=== PATIENT | male | born 1975 | race Caucasian/White ===

== ENCOUNTER 2018-02-20 08:20 | Emergency (ER) | payer BC ==
--- NOTE | 2018-02-20 08:24 | ER Document Report ---
ED General - General Stated Complaint: BACK PAIN Time Seen by Provider: 02/20/18 08:23 Mode of Arrival: Medic Information source: Patient, Relative TRAVEL OUTSIDE OF THE [place] IN LAST 30 DAYS: No - HPI Notes: 42-year-old male with a medical history of diabetes presents to the ED with complaints of having onset right leg weakness with lower back pain is become progressively worse starting today, patient states that he has had lower back pain for the last 5 days which was dull however has become severe pain today. Patient denies any trauma to back. Patient denies a history of chronic back pain. Patient has not tried any [id number] medication for pain. Patient does have a calcaneal wound to his left foot from when he tore a ligament in his ankle back in September, was placed in a orthopedic boot, he then required a diabetic ulcer in which she became infected with Pseudomonas and staph, patient is going to wound care and debridement, is currently on Cipro and Keflex. Denies fevers, chills, chest pain,palpitations, shortness of breath, dyspnea, nausea, vomiting, diarrhea, abdominal pain, hematuria,blurred vision, double vision, loss of vision, speech changes, LH, dizziness, syncope, headaches, wheezing, ST, URI, neck pain, weakness, bowel or bladder dysfunction, saddle anesthesia, rash and IV drug use. - Related Data Allergies/Adverse Reactions: No Known Allergies Allergy (Unverified 02/20/18 08:31) Past Medical History - General Information source: Patient, Relative - Social History Smoking Status: Unknown if Ever Smoked Family History: Reviewed & Not Pertinent Review of Systems - Review of Systems Constitutional: No symptoms reported EENT: No symptoms reported Cardiovascular: No symptoms reported Respiratory: No symptoms reported Gastrointestinal: No symptoms reported Genitourinary: No symptoms reported Male Genitourinary: No symptoms reported Musculoskeletal: See HPI Skin: See HPI Hematologic/Lymphatic: No symptoms reported Neurological/Psychological: No symptoms reported Physical Exam - Vital signs Vitals: Temp Pulse BP Pulse Ox 98.3 F 89 132/76 H 100 02/20/18 08:28 02/20/18 08:28 02/20/18 08:28 02/20/18 08:28 - Notes Notes: PHYSICAL EXAMINATION: GENERAL: Well-appearing, well-nourished and in no acute distress. HEAD: Atraumatic, normocephalic. EYES: Pupils equal round and reactive to light, extraocular movements intact, sclera anicteric, conjunctiva are normal. ENT: Nares patent, oropharynx clear without exudates. Moist mucous membranes. NECK: Normal range of motion, supple without lymphadenopathy LUNGS: Breath sounds clear to auscultation bilaterally and equal. No wheezes rales or rhonchi. HEART: Regular rate and rhythm without murmurs ABDOMEN: Soft, nontender, nondistended abdomen. No guarding, no rebound. No masses appreciated : Normal sphincter tone, no hemorrhoids or masses palpable Musculoskeletal: Normal range of motion, no pitting or edema. No cyanosis. Pain with flexion at 10 degrees, unable to perform extension, positive straight leg test. DTR +2 in BLE equally. Strength 5 out of 5 both distally and proximally to bilateral lower extremities. L>R sensory function to lower extremities. Motor function is normal in bilateral lower extremities equally. Distal pulses + 2 BLE equally. Noted paraspinal tenderness near L2 and L3. No spinal tenderness. No CVA tenderness bilaterally. Femoral pulses + 2 bilaterally and equally. No abrasions, scars, lacerations, ecchymosis of any recent trauma. normal gait. NEUROLOGICAL: Cranial nerves grossly intact. Normal speech, normal gait. Normal sensory, motor exams PSYCH: Normal mood, normal affect. SKIN: Warm, Dry, normal turgor, no rashes or lesions noted. 4cm annular diabetic ulcer to left calcaneal area, no erythema or drainage noted. No surrounding erythema Course - Re-evaluation Re-evalutation: 02/20/18 10:08 42-year-old male with a history of diabetes and is also dealing with a diabetic ulcer to his left heel presents for evaluation of sudden onset right lower leg weakness with acute lower back pain via EMS. Afebrile vitals stable and is in moderate distress due to pain. Rectal exam normal, decreased sensation on right lower extremity by comparison to left with soft and sharp sensory evaluation. - Vital Signs Vital signs: Temp Pulse Resp BP Pulse Ox 98.3 F 89 132/76 H 100 02/20/18 08:28 02/20/18 08:28 02/20/18 08:28 02/20/18 08:28 - Laboratory Result Diagrams: 02/20/18 08:46 02/20/18 08:46 Laboratory results interpreted by me: 02/20/18 02/20/18 08:46 08:46 Chloride 109 H Glucose 246 H Lactic Acid 2.3 H Albumin 3.4 L Discharge - Discharge Clinical Impression: Back pain, Bulging discs Condition: Stable Disposition: HOME, SELF-CARE Instructions: Low Back Pain ([facility]), Oral Narcotic Medication ([facility]), Pain Medication Injection ([facility]), Warm Packs ([facility]) Additional Instructions: You have been seen in the Emergency Department (ED) today for back pain. Your workup and exam have not shown any acute abnormalities and you suffering problems with your discs, but there is no treatment that will fix your symptoms at this time. Please take the naproxen that has been prescribed as directed. [place] as directed with food, do not drive, drink or operate heavy machine you should also purchase a local lidocaine cream such as "aspercreme with lidocaine " and use per bottle instructions to the affected area. Apply heat to the area as often as you are able. Continue to keep active and avoid prolonged periods of bed rest. Please follow up with your doctor as soon as possible regarding today's ED visit and your back pain. Return to the ED for worsening back pain, fever, weakness or numbness of either leg, or if you develop either (1) an inability to urinate or have bowel movements, or (2) loss of your ability to control your bathroom functions (if you start having "accidents"), or if you develop other new symptoms that concern you.concern you. Return immediately for any new or worsening symptoms. Follow up with primary care provider, call tomorrow to make followup appointment. Prescriptions: Cyclobenzaprine HCl [Flexeril 10 mg Tablet] 10 mg PO TIDP PRN #9 tab PRN Reason: Naproxen 500 mg PO BID #10 tablet Forms: Return to Work Referrals: JEAN-PAUL METCALF FNP-C [NO LOCAL MD] - Follow up as needed DENI ELLIS MD [COMMUNITY BASED STAFF] - Follow up in 3-5 days
[2018-02-20 09:05] LABS: ABSOLUTE BASOPHILS # (AUTO) 0.1 10^3/uL (0.0-0.2); ABSOLUTE EOSINOPHILS # (AUTO) 0.2 10^3/uL (0.0-0.6); ABSOLUTE LYMPHOCYTES (AUTO) 1.6 10^3/uL (0.5-4.7); ABSOLUTE MONOCYTES (AUTO) 0.5 10^3/uL (0.1-1.4); ABSOLUTE NEUT (AUTO) 5.7 10^3/uL (1.7-8.2); BASOPHILS % (AUTO) 0.9 % (0-2); EOSINOPHILS % (AUTO) 3.1 % (0-6); HEMATOCRIT 43.6 % (37.9-51.0); HEMOGLOBIN 15.5 g/dL (13.5-17.0); LYMPHOCYTES % (AUTO) 19.8 % (13-45); MEAN CORPUSCULAR HEMOGLOBIN 29.7 pg (27.0-33.4); MEAN CORPUSCULAR HGB CONC 35.5 g/dL (32.0-36.0); MEAN CORPUSCULAR VOLUME 84 fl (80-97); MONOCYTES % (AUTO) 5.7 % (3-13); PLATELET COUNT 264 10^3/uL (150-450); RED BLOOD COUNT 5.21 10^6/uL (4.35-5.55); SEGMENTED NEUTROPHILS % (AUTO) 70.5 % (42-78); TOTAL CELLS COUNTED % (AUTO) 100 %
[2018-02-20] MEDS ORDERED: FENTANYL CITRATE INJ/PF 100 MCG/2 ML AMPUL IV ONE (09:27)
[2018-02-20 09:30] LABS: ALANINE AMINOTRANSFERASE 51 U/L (21-72); ALBUMIN 3.4 g/dL (3.5-5.0); ALKALINE PHOSPHATASE 38 U/L (38-126); ANION GAP 9 (5-19); ASPARTATE AMINO TRANSFERASE 31 U/L (17-59); BILIRUBIN,DIRECT 0.2 mg/dL (0.0-0.4); BILIRUBIN,TOTAL 0.7 mg/dL (0.2-1.3); BLOOD UREA NITROGEN 13 mg/dL (7-20); C-REACTIVE PROTEIN 9.1 mg/L (<10.0); CALCIUM 8.7 mg/dL (8.4-10.2); CARBON DIOXIDE 22 mmol/L (22-30); CHLORIDE 109 mmol/L (98-107); GLUCOSE 246 mg/dL (75-110); POTASSIUM 4.4 mmol/L (3.6-5.0); SODIUM 140.4 mmol/L (137-145); TOTAL PROTEIN 6.3 g/dL (6.3-8.2)
--- NOTE | 2018-02-20 11:16 | RADIOLOGY REPORT (SQ) ---
EXAM DESCRIPTION: MRI LUMBAR SPINE COMBO COMPLETED DATE/TIME: 02/20/2018 10:48 am REASON FOR STUDY: new R leg weakness, -walk, on abx of leg wound, DM COMPARISON: None. TECHNIQUE: Sagittal and Axial imaging includes T1, T1 post gadolinium, T2, STIR and gradient echo se quences. Coronal T2/HASTE imaging. CONTRAST TYPE AND DOSE: 17 mL Prohance. RENAL FUNCTION: Creatinine 0.52 GFR is greater than 60 LIMITATIONS: None. FINDINGS: VISUALIZED UPPER ABDOMEN: Limited evaluation. No acute or suspicious findings suggested. SEGMENTATION: No transitional anatomy. The lowest well-developed disc space is labeled L5-S1. ALIGNMENT: Anatomic. VERTEBRAE: Intact. No fractures. BONE MARROW: Normal. No marrow replacement or reactive changes. DISC SIGNAL: There is mild decreased signal intensity at L4-5 and L5-S1. POSTERIOR ELEMENTS: Generally intact. No pars defect evident. HARDWARE: None in the spine. CORD AND CONUS: Normal in size and signal intensity. Conus at the L1 level. SOFT TISSUES: No aortic aneurysm seen. No bulky retroperitoneal adenopathy or mass. No paraspinal mas s or fluid. L1-L2: No significant spinal stenosis or exit foraminal stenosis. L2-L3: No significant spinal stenosis or exit foraminal stenosis. L3-L4: No significant spinal stenosis or exit foraminal stenosis. L4-L5: No significant spinal stenosis or exit foraminal stenosis. L5-S1: Broad-based disc bulge that is slightly asymmetric to the left. This may contact the exiting nerve root on each side. There is slight dorsal displacement of the traversing nerve root on the lef t. LOWER THORACIC: Incompletely imaged. No stenosis seen. SACRUM: Visualized upper sacrum intact. ENHANCEMENT: No abnormal enhancement. OTHER: No other significant findings. IMPRESSION: Broad-based disc bulge at L5-S1 as described above. No other significant findings. TECHNICAL DOCUMENTATION: JOB ID: [id number] [employer]- All Rights Reserved Reading location - IP/workstation name: [email or web address]
[2018-02-20] MEDS ORDERED: HYDROCODONE/ACETAMINOPHEN 5-325 MG (6 TAB/ER DISP) PO PRN (12:33)
[2018-02-20] MEDS ORDERED: HYDROMORPHONE HCL INJ/PF 2 MG/ML AMPULE IV ONE (12:53)
[2018-02-20 13:19] VITALS: BP 108/74
== END 2018-02-20 13:19 | disposition home or self-care (01) ==
LOC: ER 08:20
DX: M51.06 Intervertebral disc disorders with myelopathy, lumbar region (principal); M54.5 Low back pain; M54.9 Dorsalgia, unspecified; M62.81 Muscle weakness (generalized); E11.9 Type 2 diabetes mellitus without complications
CPT/HCPCS: 99284; 96374; 36415; 87040; 83605; 85025; 86140; 80053; 72158; A9576; J1170

== ENCOUNTER → 2019-09-24 | Outpatient (CLI) | payer BC ==
--- NOTE | 2019-09-24 16:41 | RADIOLOGY REPORT (SQ) ---
EXAM DESCRIPTION: FOOT LEFT COMPLETE COMPLETED DATE/TIME: 09/24/2019 4:24 pm REASON FOR STUDY: E11.621 TYPE 2 DIABETES MELLITUS WITH FOOT ULCER E11.621 TYPE 2 DIABETES MELLITUS WITH FOOT ULCER L97.522 NON-PRS CHRONIC ULCER OTH PRT LEFT FOOT W FAT LAYER COMPARISON: None. NUMBER OF VIEWS: Three views. TECHNIQUE: AP, lateral and oblique radiographic images acquired of the left foot. LIMITATIONS: None. FINDINGS: MINERALIZATION: Normal. BONES: Amputation of the 5th ray from the proximal 5th metatarsal. There is no evidence of osteomyel itis. JOINTS: No effusions. SOFT TISSUES: No soft tissue swelling. No foreign body. OTHER: No other significant finding. IMPRESSION: There is no evidence of osteomyelitis. TECHNICAL DOCUMENTATION: JOB ID: [id number] 2010 [employer]- All Rights Reserved Reading location - IP/workstation name: [email or web address]
== END ==
LOC: RAD 16:09
PROVIDERS: ATTEND Preventive Medicine Undersea and Hyperbaric Medicine
DX: E11.621 Type 2 diabetes mellitus with foot ulcer (principal); L97.522 Non-pressure chronic ulcer of other part of left foot with fat layer exposed

== ENCOUNTER 2019-12-18 08:34 | Emergency (ER) | payer BC ==
[2019-12-18] MEDS ORDERED: IBUPROFEN 600 MG TABLET PO ONE (08:48)
--- NOTE | 2019-12-18 08:50 | ER Document Report ---
ED General - General Chief Complaint: Wound Recheck Stated Complaint: POSSIBLE WOUND INFECTION Time Seen by Provider: 12/18/19 08:47 Primary Care Provider: MICHAEL ANDRADE FNP-C [NO LOCAL MD] - Follow up as needed Notes: 44-year-old male with diabetes, left-sided foot ulcer for several weeks being taken care of by wound care last seen this morning presents with worsening foot pain ankle pain and left calf pain. He does not notice this, but I commented on the varicosities in his left leg and he says that is new. He says that the doctor told him his wound looked great but there was "fever in my foot. He does say he is been having low-grade temps to 100 lately. No shortness of breath no cough no history of DVT PE no rectal bleeding no blood thinner use. TRAVEL OUTSIDE OF THE [place] IN LAST 30 DAYS: No - Related Data Allergies/Adverse Reactions: No Known Allergies Allergy (Unverified 02/20/18 08:31) Home Medications: Gabapentin, Lisinopril, Novalog, Zocor, Metformin Past Medical History - General Information source: Patient - Social History Smoking Status: Unknown if Ever Smoked Family History: Reviewed & Not Pertinent Patient has homicidal ideation: No Endocrine Medical History: Reports: Hx Diabetes Mellitus Type 2 Renal/ Medical History: Denies: Hx Peritoneal Dialysis Review of Systems - Review of Systems Notes: REVIEW OF SYSTEMS GEN: Denies fever, chills, weight loss ENT: Denies sore throat, nasal discharge, ear pain EYES: Denies blurry vision, eye pain, discharge CV: Denies chest pain, palpitations, edema RESP: Denies cough, shortness of breath, wheezing GI: Denies abdominal pain, nausea, vomiting, diarrhea MSK: 70 pain SKIN: Redness of left lower extremity s LYMPH: Denies swollen glands/lymph nodes NEURO: Denies headache, focal weakness or numbness, dizziness PSYCH: Denies depression, suicidal or homicidal ideation PHYSICAL EXAMINATION General: No acute distress, well-nourished Head: Atraumatic, normocephalic ENT: Mouth normal, oropharynx moist, no exudates or tonsillar enlargement Eyes: Conjunctiva normal, pupils equal, lids normal Neck: No JVD, supple, no guarding CVS: Normal rate, regular rhythm, no murmurs Resp: No resp distress, equal and normal breath sounds bilaterally GI: Nondistended, soft, no tenderness to palpation, no rebound or guarding Ext: As in the left lower extremity with varicosities in the calf Back: No CVA or midline TTP Skin: Warmth and mild erythema of left foot. Covered foot ulcer but no drainage noted and was just assessed by primary Lymphatic: No lymphadeopathy noted Neuro: Awake, alert. Face symmetric. GCS 15. Physical Exam - Vital signs Vitals: Temp Pulse Resp BP Pulse Ox 99.4 F 120 H 16 135/81 H 98 12/18/19 08:39 12/18/19 08:39 12/18/19 08:39 12/18/19 08:39 12/18/19 08:39 Course - Re-evaluation Re-evalutation: 12/18/19 15:19 Presents with diabetic foot ulcer worsening leg pain, mild warmth but minimal redness.? Varicosities DVT ultrasound: Negative The wound on exam does not probe to bone at all has minimal surrounding redness but will treat for cellulitis. Initially was tachycardic, repeat heart rate was 100. He has no true fever is not clammy does not appear septic. Although osteomyelitis is a possibility given the acute presentation lack of probe to bone, no fever here, doubt that this is going on now and will treat for cellulitis. Will return in 1 week if not better for work-up for osteo I have discussed with the patient there likely diagnosis, aftercare plan, follow-up plans and my usual and customary return precautions. They verbalized understanding of this. - Vital Signs Vital signs: Temp Pulse Resp BP Pulse Ox 98.8 F 102 H 16 132/70 H 99 12/18/19 10:32 12/18/19 10:32 12/18/19 10:32 12/18/19 10:32 12/18/19 10:32 - Diagnostic Test Radiology reviewed: Image reviewed, Reports reviewed Discharge - Discharge Clinical Impression: Cellulitis of left foot Condition: Good Disposition: HOME, SELF-CARE Instructions: Cellulitis ([facility]) Additional Instructions: As we discussed if you are not improving after a week you will need to come to your primary, or here to get testing and a rule out for osteomyelitis Prescriptions: Doxycycline Hyclate 100 mg PO BID #20 tablet. Referrals: MICHAEL ANDRADE OFFENDER JOB RETENTION SPECIALIST-C [NO LOCAL MD] - Follow up as needed
[2019-12-18 10:34] VITALS: BP 132/70
--- NOTE | 2019-12-18 11:22 | RADIOLOGY REPORT (SQ) ---
EXAM DESCRIPTION: VENOUS UNILATERAL LOWER IMAGES COMPLETED DATE/TIME: 12/18/2019 11:07 am REASON FOR STUDY: varicosities, calf pain r/o DVT COMPARISON: None. TECHNIQUE: Dynamic and static zapata scale and color images acquired of the left leg venous system. Se lected spectral images acquired with additional compression and augmentation maneuvers. The contralat eral common femoral vein and saphenofemoral junction were also imaged. Images stored on PACS. LIMITATIONS: None. FINDINGS: COMMON FEMORAL: Normal phasicity, compression and augmentation. No visualized echogenic ma terial on zapata scale. No defects on color images. FEMORAL: Normal compression and augmentation. No visualized echogenic material on zapata scale. No defe cts on color images. POPLITEAL: Normal compression, augmentation. No visualized echogenic material on zapata scale. No defec ts on color images. CALF VESSELS: Normal compression, augmentation. No visualized echogenic material on zapata scale. No de fects on color images. GSV and SSV: Normal compression, augmentation. No visualized echogenic material on zapata scale. No def ects on color images. ANY DEEP VENOUS INSUFFICIENCY: Not evaluated. ANY EVIDENCE OF POPLITEAL CYST: No. OTHER: No other significant finding. CONTRALATERAL COMMON FEMORAL VEIN AND SAPHENOFEMORAL JUNCTION: Normal phasicity, compression and augmentation. No visualized echogenic material on zapata scale. No de fects on color images. IMPRESSION: NO EVIDENCE DVT OR SVT IN THE LEFT LEG. TECHNICAL DOCUMENTATION: JOB ID: [id number] 2010 [employer]- All Rights Reserved Reading location - IP/workstation name: [email or web address]
== END 2019-12-18 10:40 | disposition home or self-care (01) ==
LOC: ER 08:34
DX: L03.116 Cellulitis of left lower limb (principal); E11.621 Type 2 diabetes mellitus with foot ulcer; L97.529 Non-pressure chronic ulcer of other part of left foot with unspecified severity; M25.579 Pain in unspecified ankle and joints of unspecified foot; M79.662 Pain in left lower leg; Z79.4 Long term (current) use of insulin; Z79.899 Other long term (current) drug therapy
CPT/HCPCS: 93971; 99283

== ENCOUNTER → 2019-12-29 | Outpatient (CLI) | payer BC ==
--- NOTE | 2019-12-29 14:34 | RADIOLOGY REPORT (SQ) ---
EXAM DESCRIPTION: FOOT LEFT COMPLETE IMAGES COMPLETED DATE/TIME: 12/29/2019 1:53 pm REASON FOR STUDY: L97.522 NON-PRS CHRONIC ULCER OTH PRT LEFT FOOT W FAT LAYER EXPOSED L97.522 NON-P RS CHRONIC ULCER OTH PRT LEFT FOOT W FAT LAYER COMPARISON: 09/24/2019 NUMBER OF VIEWS: Three views. TECHNIQUE: AP, lateral and oblique radiographic images acquired of the left foot. LIMITATIONS: None. FINDINGS: MINERALIZATION: Normal. BONES: Amputation of the 5th ray from the proximal 5th metatarsal. Osteomyelitis is present. Dramat ic change from the earlier study. JOINTS: No effusions. SOFT TISSUES: No soft tissue swelling. No foreign body. OTHER: No other significant finding. IMPRESSION: Osteomyelitis in the proximal 5th metatarsal. TECHNICAL DOCUMENTATION: JOB ID: [id number] 2010 [employer]- All Rights Reserved Reading location - IP/workstation name: [email or web address]
== END ==
LOC: RAD 12:08
PROVIDERS: ATTEND Preventive Medicine Undersea and Hyperbaric Medicine
DX: E11.621 Type 2 diabetes mellitus with foot ulcer (principal); L97.522 Non-pressure chronic ulcer of other part of left foot with fat layer exposed; M86.8X7 Other osteomyelitis, ankle and foot
CPT/HCPCS: 82565; 73720; 73630; A9576

== ENCOUNTER → 2020-01-01 | Outpatient (CLI) | payer BC ==
--- NOTE | 2020-01-01 13:52 | RADIOLOGY REPORT (SQ) ---
EXAM DESCRIPTION: CHEST 2 VIEWS IMAGES COMPLETED DATE/TIME: 01/01/2020 9:42 am REASON FOR STUDY: SPONTANEOUS TENSION PNEMOTHORAX COMPARISON: None. EXAM PARAMETERS: NUMBER OF VIEWS: two views TECHNIQUE: Digital Frontal and Lateral radiographic views of the chest acquired. RADIATION DOSE: NA LIMITATIONS: none FINDINGS: LUNGS AND PLEURA: No opacities, masses or pneumothorax. No pleural effusion. MEDIASTINUM AND HILAR STRUCTURES: No masses or contour abnormalities. HEART AND VASCULAR STRUCTURES: Heart normal size. No evidence for failure. BONES: No acute findings. HARDWARE: None in the chest. OTHER: No other significant finding. IMPRESSION: NO ACUTE RADIOGRAPHIC FINDING IN THE CHEST. TECHNICAL DOCUMENTATION: JOB ID: [id number] 2010 [employer]- All Rights Reserved Reading location - IP/workstation name: [email or web address]
== END ==
LOC: RAD 09:11
PROVIDERS: ATTEND Preventive Medicine Undersea and Hyperbaric Medicine
DX: J93.0 Spontaneous tension pneumothorax (principal)
CPT/HCPCS: 71046

== ENCOUNTER → 2020-01-12 | Outpatient (CLI) | payer BC ==
[2020-01-12 12:21] LABS: ABSOLUTE BASOPHILS # (AUTO) 0.1 10^3/uL (0.0-0.2); ABSOLUTE EOSINOPHILS # (AUTO) 0.2 10^3/uL (0.0-0.6); ABSOLUTE MONOCYTES (AUTO) 0.6 10^3/uL (0.1-1.4); BASOPHILS % (AUTO) 0.9 % (0-2); HEMATOCRIT 33.6 % (37.9-51.0); HEMOGLOBIN 11.8 g/dL (13.5-17.0); LYMPHOCYTES % (AUTO) 25.6 % (13-45); MEAN CORPUSCULAR HEMOGLOBIN 28.3 pg (27.0-33.4); MEAN CORPUSCULAR HGB CONC 35.1 g/dL (32.0-36.0); MEAN CORPUSCULAR VOLUME 80 fl (80-97); MONOCYTES % (AUTO) 7.7 % (3-13); PLATELET COUNT 436 10^3/uL (150-450); RED BLOOD COUNT 4.17 10^6/uL (4.35-5.55); RED CELL DISTRIBUTION WIDTH 13.2 % (11.5-14.0); SEGMENTED NEUTROPHILS % (AUTO) 63.8 % (42-78); TOTAL CELLS COUNTED % (AUTO) 100 %; WHITE BLOOD COUNT 7.8 10^3/uL (4.0-10.5)
[2020-01-12 12:46] LABS: ALBUMIN 3.9 g/dL (3.5-5.0); ALKALINE PHOSPHATASE 112 U/L (38-126); ANION GAP 9 (5-19); ASPARTATE AMINO TRANSFERASE 21 U/L (17-59); BILIRUBIN,DIRECT 0.1 mg/dL (0.0-0.4); BILIRUBIN,TOTAL 0.9 mg/dL (0.2-1.3); BLOOD UREA NITROGEN 13 mg/dL (7-20); CALCIUM 9.6 mg/dL (8.4-10.2); CARBON DIOXIDE 25 mmol/L (22-30); CHLORIDE 102 mmol/L (98-107); GLUCOSE 232 mg/dL (75-110); POTASSIUM 4.7 mmol/L (3.6-5.0); TOTAL PROTEIN 7.9 g/dL (6.3-8.2)
[2020-01-12 13:09] LABS: C-REACTIVE PROTEIN 137.8 mg/L (<10.0)
[2020-01-12 13:18] LABS: ERYTHROCYTE SEDIMENTATION RATE 106 mm/hr (0-15)
== END ==
LOC: WC 11:17
PROVIDERS: ATTEND Preventive Medicine Undersea and Hyperbaric Medicine
DX: E11.621 Type 2 diabetes mellitus with foot ulcer (principal); L97.522 Non-pressure chronic ulcer of other part of left foot with fat layer exposed
CPT/HCPCS: 36415; 80053; 83036; 85025; 85652; 86140

== ENCOUNTER → 2020-01-13 | Outpatient (CLI) | payer BC ==
[~2020-01-13] MED LIST: LACTATED RINGERS 1000 ML IV PRN; LIDOCAINE 0.5% INJ-PF (5 MG/ML) 50 ML SDV SUBCUT PRN
--- NOTE | 2020-01-13 13:08 | RADIOLOGY REPORT (SQ) ---
EXAM DESCRIPTION: ANKLE LEFT COMPLETE IMAGES COMPLETED DATE/TIME: 01/13/2020 11:49 am REASON FOR STUDY: NON-PRS CHRONIC ULCER OTH PRT LEFT FOOT W FAT LAYER EXPOSED L97.522 NON-PRS CHRON IC ULCER OTH PRT LEFT FOOT W FAT LAYER COMPARISON: None. NUMBER OF VIEWS: Three views. TECHNIQUE: AP, lateral, and oblique radiographic images acquired of the left ankle. LIMITATIONS: None. FINDINGS: MINERALIZATION: Normal. BONES: No fracture or dislocation. No evidence of osteomyelitis PE JOINTS: No effusions. SOFT TISSUES: No soft tissue swelling. No foreign body. OTHER: No other significant finding. IMPRESSION: No evidence of osteomyelitis. TECHNICAL DOCUMENTATION: JOB ID: [id number] 2010 [employer]- All Rights Reserved Reading location - IP/workstation name: [email or web address]
--- NOTE | 2020-01-13 13:14 | RADIOLOGY REPORT (SQ) ---
EXAM DESCRIPTION: KNEE LEFT 2 VIEWS IMAGES COMPLETED DATE/TIME: 01/13/2020 11:49 am REASON FOR STUDY: NON-PRS CHRONIC ULCER OTH PRT LEFT FOOT W FAT LAYER EXPOSED L97.522 NON-PRS CHRON IC ULCER OTH PRT LEFT FOOT W FAT LAYER COMPARISON: None. NUMBER OF VIEWS: Four views. TECHNIQUE: AP, lateral, and both oblique radiographic images acquired of the left knee. LIMITATIONS: None. FINDINGS: MINERALIZATION: Normal. BONES: No acute fracture or dislocation. No worrisome bone lesions. JOINT: No effusion. SOFT TISSUES: No soft tissue swelling. No radio-opaque foreign body. OTHER: No other significant finding. IMPRESSION: NEGATIVE STUDY OF THE LEFT KNEE. NO RADIOGRAPHIC EVIDENCE OF ACUTE INJURY. TECHNICAL DOCUMENTATION: JOB ID: [id number] 2010 [employer]- All Rights Reserved Reading location - IP/workstation name: [email or web address]
--- NOTE | 2020-01-13 13:19 | RADIOLOGY REPORT (SQ) ---
EXAM DESCRIPTION: TIBIA FIBULA LEFT IMAGES COMPLETED DATE/TIME: 01/13/2020 11:49 am REASON FOR STUDY: NON-PRS CHRONIC ULCER OTH PRT LEFT FOOT W FAT LAYER EXPOSED L97.522 NON-PRS CHRON IC ULCER OTH PRT LEFT FOOT W FAT LAYER COMPARISON: None. NUMBER OF VIEWS: Two views. TECHNIQUE: Two radiographic images acquired of the left tibia and fibula to include the knee and ank le in at least one projection. LIMITATIONS: None. FINDINGS: MINERALIZATION: Normal. BONES: No fracture dislocation. There is an area of thinning of the inner cortex of the mid tibia me dially. This is seen on all views. SOFT TISSUES: No obvious swelling or foreign body. OTHER: No other significant finding. IMPRESSION: There is an area of cortical erosion in the mid tibia as described. Consider nuclear me dicine bone scan to see if there is metabolic activity in this area to rule out an active bone lesion . TECHNICAL DOCUMENTATION: JOB ID: [id number] 2010 [employer]- All Rights Reserved Reading location - IP/workstation name: [email or web address]
== END ==
LOC: OD 10:22 → EDSTATUS 01-16 13:30
PROVIDERS: ATTEND Preventive Medicine Undersea and Hyperbaric Medicine
DX: Z03.818 Encounter for observation for suspected exposure to other biological agents ruled out (principal); L97.522 Non-pressure chronic ulcer of other part of left foot with fat layer exposed
CPT/HCPCS: 36415; 87040; 87635; 73610; 73560; 73590; C9803

== ENCOUNTER 2020-01-14 17:36 | Inpatient (IN) | payer BC ==
[2020-01-14 18:12] LABS: ABSOLUTE EOSINOPHILS # (AUTO) 0.1 10^3/uL (0.0-0.6); ABSOLUTE LYMPHOCYTES (AUTO) 0.8 10^3/uL (0.5-4.7); ABSOLUTE MONOCYTES (AUTO) 0.5 10^3/uL (0.1-1.4); ABSOLUTE NEUT (AUTO) 4.9 10^3/uL (1.7-8.2); BASOPHILS % (AUTO) 0.7 % (0-2); HEMOGLOBIN 10.4 g/dL (13.5-17.0); LYMPHOCYTES % (AUTO) 12.6 % (13-45); MEAN CORPUSCULAR HEMOGLOBIN 28.5 pg (27.0-33.4); MEAN CORPUSCULAR VOLUME 79 fl (80-97); MONOCYTES % (AUTO) 8.2 % (3-13); PLATELET COUNT 365 10^3/uL (150-450); RED BLOOD COUNT 3.67 10^6/uL (4.35-5.55); RED CELL DISTRIBUTION WIDTH 13.5 % (11.5-14.0); SEGMENTED NEUTROPHILS % (AUTO) 77.5 % (42-78); TOTAL CELLS COUNTED % (AUTO) 100 %; WHITE BLOOD COUNT 6.4 10^3/uL (4.0-10.5)
[2020-01-14 18:22] LABS: INTERNATIONAL RATION (INR) 1.08
[2020-01-14 18:35] LABS: ALBUMIN 3.4 g/dL (3.5-5.0); ALKALINE PHOSPHATASE 103 U/L (38-126); ANION GAP 10 (5-19); ASPARTATE AMINO TRANSFERASE 23 U/L (17-59); BILIRUBIN,DIRECT 0.1 mg/dL (0.0-0.4); BILIRUBIN,TOTAL 0.9 mg/dL (0.2-1.3); BLOOD UREA NITROGEN 13 mg/dL (7-20); CALCIUM 9.3 mg/dL (8.4-10.2); CARBON DIOXIDE 22 mmol/L (22-30); CHLORIDE 102 mmol/L (98-107); GLUCOSE 223 mg/dL (75-110); POTASSIUM 4.9 mmol/L (3.6-5.0)
[2020-01-14 18:41] LABS: VENOUS BLOOD BASE EXCESS 2.8 mmol/L; VENOUS BLOOD HCO3 23.9 mmol/L (20-32); VENOUS BLOOD PCO2 29.2 mmHg (35-63); VENOUS BLOOD PH 7.53 (7.30-7.42)
--- NOTE | 2020-01-14 18:58 | ER Document Report ---
ED General - General Chief Complaint: Fever Stated Complaint: FEVER Time Seen by Provider: 01/14/20 17:38 Primary Care Provider: SHAW TREADWELL DPM [Primary Care Provider] - Follow up as needed Mode of Arrival: Medic Information source: Patient, Emergency Med Personnel, [facility] Records Notes: This 44-year-old insulin-dependent type II diabetic comes emergency room compla ining of increasing pain and swelling to his left foot and ankle. He has had a problem for the past several weeks, he was seen here on 12/18/2019, and was diagnosed with a cellulitis to the foot and placed on 10-day course of doxycycline. At that time his wound was probed and did not go to bone. The patient did have an MRI on 12/29/2019 showing findings worrisome for osteomyelitis involving the bases of the third fourth and fifth metatarsals, lateral cuneiform bone and cuboid bone. There was a diffuse midfoot soft tissue cellulitis. There was also a 2 x 1 cm cyst protruding off the dorsal aspect of the 5th tarsometatarsal joint likely from septic arthritis. The patient has had some debridements, and been doing hyperbaric wound care treatments. He reports that 2 days ago his white blood cell count was about 7000, and he did the hyperbaric treatment yesterday. He did have x-rays done of the left knee, tibia, and ankle yesterday. He reports he had blood work with blood cultures on Sunday. The CBC was unremarkable, ESR was 106 and CRP was 138. 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 He is scheduled for the bone scraping to be done this coming 01/16/2020. Patient reports he has been having low-grade fevers around 100 in the afternoons for the past week, would feel poorly, take Tylenol and Motrin, and then feel better. Today he is noticed his temperature went over 102, he has had shaking chills. He has had nausea and vomiting this morning. His blood sugars most recently was 220. The patient received 1 L of LR and 975 Tylenol from EMS. He received 2 L of normal saline on ER arrival. TRAVEL OUTSIDE OF THE [place] IN LAST 30 DAYS: No - Related Data Allergies/Adverse Reactions: No Known Allergies Allergy (Verified 01/13/20 10:49) Past Medical History - General Information source: Patient, [facility] Records - Social History Smoking Status: Never Smoker Cigarette use (# per day): No Chew tobacco use (# tins/day): No Smoking Education Provided: No Frequency of alcohol use: None Drug Abuse: None Occupation: [employer] Lives with: Family Family History: Reviewed & Not Pertinent Neurological Medical History: Reports: Other - Diabetic peripheral neuropathy Endocrine Medical History: Reports: Hx Diabetes Mellitus Type 2 Past Surgical History: Reports: Hx Appendectomy, Hx Orthopedic Surgery - Left fifth metatarsal partial resection for osteomyelitis in 2014. Review of Systems - Review of Systems Constitutional: See HPI, Chills, Fever EENT: No symptoms reported Cardiovascular: No symptoms reported Respiratory: No symptoms reported Gastrointestinal: See HPI, Nausea, Vomiting Genitourinary: No symptoms reported Musculoskeletal: See HPI Skin: See HPI Hematologic/Lymphatic: No symptoms reported Neurological/Psychological: No symptoms reported Physical Exam - Vital signs Vitals: Temp 102.8 F H 01/14/20 17:36 Interpretation: Febrile - General General appearance: Alert, Other - Looks tired, worn out In distress: None - HEENT Head: Normocephalic, Atraumatic Eyes: Normal Pupils: PERRL Mouth/Lips: Other - Mouth is a little dry - Respiratory Respiratory status: No respiratory distress Breath sounds: Normal - Cardiovascular Rhythm: Regular, Tachycardia Heart sounds: Normal auscultation Murmur: No - Abdominal Inspection: Normal Bowel sounds: Normal - Back Back: Normal - Extremities General upper extremity: Normal inspection General lower extremity: Other - Left foot has a bandage over the lateral foot. There is a defect noted from the old partial left fifth metatarsal resection. The bandage covers the wound. The dorsal foot is grossly swollen, with a band of erythema. The ankle is swollen and shows some venous varicosities on the lateral aspect tracking into the leg. These were noted on physical exam on 12/18/2019 and were a new finding at that time. Calf: Normal, Other - Left tibial shaft is not tender to palpate. - Neurological Neuro grossly intact: Yes - Psychological Associated symptoms: Normal affect, Normal mood - Skin Skin Temperature: Warm Skin Moisture: Dry Skin Color: Normal Course - Vital Signs Vital signs: Temp Pulse Resp BP Pulse Ox 102.8 F H 99 01/14/20 17:36 01/14/20 17:49 - Laboratory Result Diagrams: 01/14/20 17:35 01/14/20 17:35 Laboratory results interpreted by me: 01/14/20 01/14/20 01/14/20 17:35 17:35 17:35 RBC 3.67 L Hgb 10.4 L Hct 29.0 L MCV 79 L Lymph % (Auto) 12.6 L VBG pH 7.53 H VBG pCO2 29.2 L Sodium 133.5 L Glucose 223 H Albumin 3.4 L - Consults Dr. Treadwell Time consulted: 20:00 Consulted provider: other - Will try to find the information from the ID nutrition consultant and fax it to the emergency room. Dr. 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
--- NOTE | 2020-01-14 19:14 | RADIOLOGY REPORT (SQ) ---
EXAM DESCRIPTION: CHEST SINGLE VIEW IMAGES COMPLETED DATE/TIME: 01/14/2020 6:39 pm REASON FOR STUDY: sepsis COMPARISON: 01/01/2020 EXAM PARAMETERS: NUMBER OF VIEWS: One view. TECHNIQUE: Single frontal radiographic view of the chest acquired. RADIATION DOSE: NA LIMITATIONS: None. FINDINGS: LUNGS AND PLEURA: No opacities, masses or pneumothorax. No pleural effusion. MEDIASTINUM AND HILAR STRUCTURES: No masses. Contour normal. HEART AND VASCULAR STRUCTURES: Heart normal in size. Normal vasculature. BONES: No acute findings. HARDWARE: None in the chest. OTHER: No other significant finding. IMPRESSION: NO ACUTE RADIOGRAPHIC FINDING IN THE CHEST. TECHNICAL DOCUMENTATION: JOB ID: [id number] 2010 [employer]- All Rights Reserved Reading location - IP/workstation name: [email or web address]
--- NOTE | 2020-01-14 20:02 | RADIOLOGY REPORT (SQ) ---
EXAM DESCRIPTION: FOOT LEFT COMPLETE IMAGES COMPLETED DATE/TIME: 01/14/2020 7:35 pm REASON FOR STUDY: Osteo by recent MRI, pain and swelling worse COMPARISON: Left foot films 12/29/2019, 09/24/2019 MRI left foot 12/29/2019 NUMBER OF VIEWS: Three views. TECHNIQUE: AP, lateral and oblique radiographic images acquired of the left foot. LIMITATIONS: None. FINDINGS: Continued fragmentation and bony resorption of the 5th metatarsal particularly along the 5 th tarsometatarsal joints as compared to prior films. Findings are worrisome for ongoing osteomyelit is. There is bony resorption along the cuboid bone at the 5th tarsometatarsal joint worrisome for early c hanges of osteomyelitis. Healed stress fracture proximal 4th metatarsal. Soft tissue defect post left 5th toe amputation along the mid metatarsal with small ulcer. Diffuse f orefoot soft tissue swelling IMPRESSION: Findings worrisome for continued osteomyelitis along the cuboid bone and base of the 5th metatarsal TECHNICAL DOCUMENTATION: JOB ID: [id number] 2010 [employer]- All Rights Reserved Reading location - IP/workstation name: [id number]
[2020-01-14] MEDS ORDERED: ERTAPENEM SODIUM INJ 1 GM VIAL IV ONE (20:09)
--- NOTE | 2020-01-14 20:40 | EKG REPORT ---
SEVERITY:- ABNORMAL ECG - SINUS TACHYCARDIA NONSPECIFIC INTRAVENTRICULAR CONDUCTION DELAY : Confirmed by: Jose Rivera MD 14-Jan-2020 20:40:16
[2020-01-14] MEDS ORDERED: MAG HYDROX/AL HYDROX/SIMETH SUSP 30 ML UDCUP PO PRN (20:52)
[2020-01-14] MEDS ORDERED: MAGNESIUM HYDROXIDE SUSP 30 ML UDCUP PO PRN (20:52)
[2020-01-14] MEDS ORDERED: HYDRALAZINE HCL INJ/PF 20 MG/1 ML SDV IV PRN (20:59)
[2020-01-14] MEDS ORDERED: METOPROLOL TARTRATE PF/INJ 5 MG/5 ML SDV IV PRN (20:59)
[2020-01-14] MEDS ORDERED: LORAZEPAM INJ 2 MG/1 ML VIAL IV PRN (20:59)
[2020-01-14] MEDS ORDERED: ACETAMINOPHEN 650 MG SUPP.RECT PR PRN (20:59)
[2020-01-14] MEDS ORDERED: MORPHINE SULFATE 10 MG/ML INJ IV PRN ×4 (20:59→21:27)
[2020-01-14] MEDS ORDERED: MELATONIN 5 MG TABLET PO PRN (20:59)
[2020-01-14] MEDS ORDERED: DEXTROSE 50%-WATER 25 GM/50 ML DISP.SYRIN IV PRN ×2 (21:01)
[2020-01-14] MEDS ORDERED: GLUCAGON,HUMAN RECOMB 1 MG INJ IM PRN (21:01)
[2020-01-14] MEDS ORDERED: DEXTROSE 40% GEL 15 GM TUBE PO PRN ×2 (21:01)
[2020-01-14] MEDS ORDERED: VANCOMYCIN HCL INJ 1000 MG VIAL IV SCH (21:15)
[2020-01-14] MEDS ORDERED: MEROPENEM 1 GM VIAL IV SCH (21:15)
[2020-01-14] MEDS ORDERED: VANCOMYCIN HCL INJ 1000 MG VIAL IV PRN (23:42)
[2020-01-14] MEDS ORDERED: VANCOMYCIN HCL 2,000 MG in DEXTROSE 5%-WATER 500 ML IV ONE (23:45)
[2020-01-15] MEDS: HEPARIN SOD (PORCINE) 5,000 UNIT/ML 1 ML VIAL SUBCUT SCH ×4 (00:31→22:35)
[2020-01-15] MEDS: INSULIN REG, HUMAN 100 UNIT/ML 3 ML VIAL (PYX) SUBCUT SCH ×5 (00:32→22:35)
[2020-01-15] MEDS: FAMOTIDINE INJ/PF 20 MG/2 ML SDV IV SCH ×3 (00:32→22:36)
--- NOTE | 2020-01-15 02:29 | PDOC H&P ---
History of Present Illness Admission Date/PCP: 01/14/2020 20:26 SHAW TREADWELL DPM Patient complains of: Foot pain History of Present Illness: ANTONIETA MILLARD is a 44 year old male who presented the emergency room via EMS with a 1 month history of left foot pain. He admits progressively worsening pain, redness and swelling of his left foot and ankle over the last 4 weeks since he was seen in the emergency room here at [facility] on 12/18/2019. He was treated for a cellulitis of the left foot with doxycycline x10 days. He had an MRI on 12/29/2019 showing possible osteomyelitis involving the third fourth and fifth metatarsals as well as several bones of the midfoot in addition to the soft tissue cellulitis and a possible septic arthritis. He has been seeing Dr. Treadwell at the wound care clinic and has undergone debridements and hyperbaric treatments without improvement. He was scheduled to have surgical bone scraping for collection of the infecting organism on 01/[address] Treadwell. He admits that his left foot pain, redness and swelling has worsened over the last 3 days and has been accompanied by a fever which became markedly worse today at greater than 102 with associated rigorous chills and accompanying nausea with vomiting this morning. His pain and fever have been partially relieved by taking Tylenol and Motrin over the last 2 days. His pain is worsened by weightbearing. He denies other associated or accompanying signs and symptoms. He admits prior similar symptoms that resulted in a partial amputation of the left fifth toe 5 years ago. He has not identified any additional aggravating or ameliorating factors for his left foot pain. In the emergency room he was found to have a fever of 102.8 F despite having taken Tylenol prior to coming to the ER. He was given IV fluids and blood cultures were obtained with empiric antibiotic therapy initiated. Patient was subsequently admitted to the hospital for further evaluation and treatment. Past Medical History Cardiac Medical History: Reports: Hypertension Denies: Atrial Fibrillation, Coronary Artery Disease, DVT, Myocardial Infarction, Pulmonary Embolism Pulmonary Medical History: Reports: Respiratory Failure - Acute pulmonary edema associated with an inhaled anesthetic Denies: Asthma, Chronic Obstructive Pulmonary Disease (COPD), Sleep Apnea EENT Medical History: Reports: Eyes - Eyeglasses Denies: Cataracts, Ears - Hearing aids Neurological Medical History: Reports: Other - Diabetic peripheral neuropathy Denies: Hemorrhagic CVA, Ischemic CVA, Seizures Endocrine Medical History: Reports: Diabetes Mellitus Type 2, Obesity Denies: Diabetes Mellitus Type 1, Hyperthyroidism, Hypothyroidism Renal/ Medical History: Denies: Chronic Kidney Disease, Nephrolithiasis Malignancy Medical History: Reports: None GI Medical History: Denies: Cirrhosis, Hepatitis Musculoskeltal Medical History: Reports: Other - Osteomyelitis of the left fifth toe Denies: Arthritis, Gout Skin Medical History: Denies: Eczema, Psoriasis Psychiatric Medical History: Denies: Alcohol Dependency, Substance Abuse, Tobacco Dependency Traumatic Medical History: Reports: None Hematology: Denies: Anemia, Bleeding Tendencies Infectious Medical History: Reports: None Past Surgical History Past Surgical History: Reports: Appendectomy, Orthopedic Surgery - Left fifth toe and metatarsal partial resection for osteomyelitis in 2015. Social History Information Source: Patient Lives with: Family, Spouse/Significant other Smoking Status: Never Smoker Electronic Cigarette use?: No Frequency of Alcohol Use: None Hx Recreational Drug Use: No Drugs: None Hx Prescription Drug Abuse: No - Advance Directive Resuscitation Status: Full Code Surrogate healthcare decision maker:: Beatriz Millard Family History Family History: DM - Mother's side, Malignancy - Pancreatic cancer, father's side. denies: CAD, Hypertension Parental Family History Reviewed: Yes Children Family History Reviewed: No Sibling(s) Family History Reviewed.: Yes Medication/Allergy Home Medications: Gabapentin [Neurontin] 900 mg PO QHS 01/13/20 Insulin Aspart [Novolog] 60 unit SUBCUT HSP PRN 01/13/20 Insulin Glargine,Hum.rec.anlog [Toujeo Solostar] 0 units SUBCUT QPM 01/13/20 Metformin HCl 1,000 mg PO BID 01/13/20 Semaglutide [Ozempic] 1 mg INJ TH@1000 PRN 01/13/20 Simvastatin [Zocor 10 mg Tablet] 10 mg PO QHS 01/13/20 Insulin Aspart Prot/Insuln Asp [Novolog Mix 70-30 Flexpen Syrn] 40 unit SQ BIDBL 01/14/20 Lisinopril [Prinivil 5 mg Tablet] 5 mg PO DAILY 01/14/20 Allergies/Adverse Reactions: No Known Allergies Allergy (Verified 01/13/20 10:49) Review of Systems Constitutional: PRESENT: as per HPI, chills, fever(s) Eyes: ABSENT: visual disturbances, other - Eye pain Ears: ABSENT: hearing changes, other - Ear pain Nose, Mouth, and Throat: ABSENT: headache(s), sore throat Cardiovascular: ABSENT: chest pain, palpitations Respiratory: ABSENT: cough, dyspnea Gastrointestinal: PRESENT: as per HPI, nausea, vomiting. ABSENT: abdominal jose n, constipation, diarrhea Genitourinary: ABSENT: dysuria, hematuria Musculoskeletal: PRESENT: as per HPI, other - Erythema edema and pain of the left foot. ABSENT: back pain Integumentary: PRESENT: as per HPI, erythema - Erythema edema and pain of the left foot. ABSENT: pruritus, rash Neurological: ABSENT: confusion, convulsions, focal weakness, memory loss, syncope Psychiatric: ABSENT: anxiety, depression Endocrine: ABSENT: cold intolerance, heat intolerance Hematologic/Lymphatic: ABSENT: easy bleeding, easy bruising Allergic/Immunologic: ABSENT: seasonal rhinorrhea Physical Exam Vital Signs: Temp Pulse Resp BP Pulse Ox 102.8 F H 99 01/14/20 17:36 01/14/20 17:49 General appearance: PRESENT: no acute distress, cooperative, obese Head exam: PRESENT: atraumatic, normocephalic Eye exam: PRESENT: conjunctiva pink. ABSENT: conjunctival injection, scleral icterus Ear exam: PRESENT: normal external ear exam. ABSENT: bleeding, drainage Mouth exam: PRESENT: dry mucosa, neck supple Neck exam: ABSENT: thyromegaly, tracheal deviation Respiratory exam: PRESENT: clear to auscultation kev, symmetrical, unlabored Cardiovascular exam: PRESENT: RRR. ABSENT: clicks, gallop, rubs Pulses: PRESENT: normal radial pulses, normal dorsalis pedis pul Vascular exam: PRESENT: normal capillary refill. ABSENT: pallor GI/Abdominal exam: PRESENT: normal bowel sounds, soft Rectal exam: PRESENT: deferred Extremities exam: PRESENT: tenderness - Erythema and edema with local tenderness to palpation of the left foot, with a small deep ulceration on the lateral aspect of the left mid-foot plantar surface.. ABSENT: joint swelling Musculoskeletal exam: PRESENT: other - Status post amputation of the left fifth toe. ABSENT: deformity, dislocation Neurological exam: PRESENT: alert, oriented to person, oriented to place, oriented to time, oriented to situation, CN II-XII grossly intact. ABSENT: motor sensory deficit Psychiatric exam: PRESENT: appropriate affect, normal mood Skin exam: PRESENT: dry, intact, warm, other - Left foot as noted above. ABSENT: jaundice, rash, urticaria Results Laboratory Results: 01/14/20 17:35 01/14/20 17:35 01/14/20 01/14/20 01/14/20 17:35 17:35 17:35 WBC 6.4 RBC 3.67 L Hgb 10.4 L Hct 29.0 L MCV 79 L MCH 28.5 MCHC 36.0 RDW 13.5 Plt Count 365 Seg Neutrophils % 77.5 VBG pH 7.53 H VBG pCO2 29.2 L VBG HCO3 23.9 VBG Base Excess 2.8 Sodium 133.5 L Potassium 4.9 Chloride 102 Carbon Dioxide 22 Anion Gap 10 BUN 13 Creatinine 0.71 Est GFR ( Amer) > 60 Glucose 223 H Lactic Acid Calcium 9.3 Total Bilirubin 0.9 AST 23 Alkaline Phosphatase 103 Total Protein 7.0 Albumin 3.4 L 01/14/20 17:35 WBC RBC Hgb Hct MCV MCH MCHC RDW Plt Count Seg Neutrophils % VBG pH VBG pCO2 VBG HCO3 VBG Base Excess Sodium Potassium Chloride Carbon Dioxide Anion Gap BUN Creatinine Est GFR ( Amer) Glucose Lactic Acid 1.4 Calcium Total Bilirubin AST Alkaline Phosphatase Total Protein Albumin Impressions: Chest X-Ray 01/14/20 17:50 IMPRESSION: NO ACUTE RADIOGRAPHIC FINDING IN THE CHEST. Foot X-Ray 01/14/20 19:22 IMPRESSION: Findings worrisome for continued osteomyelitis along the cuboid bone and base of the 5th metatarsal Assessment and Plan - Diagnosis (1) Osteomyelitis of left foot Qualifiers: Osteomyelitis type: unspecified type Qualified Code(s): M86.9 - Osteomyelitis, unspecified Is this a current diagnosis for this admission?: Yes (2) SIRS (systemic inflammatory response syndrome) Is this a current diagnosis for this admission?: Yes (3) Diabetes mellitus type 2 in obese Is this a current diagnosis for this admission?: Yes (4) Hypertension Qualifiers: Hypertension type: essential hypertension Qualified Code(s): I10 - Essential (primary) hypertension Is this a current diagnosis for this admission?: Yes (5) Obesity Qualifiers: Obesity type: unspecified obesity type Obesity classification: unspecified obesity classification Serious obesity comorbidity presence: with serious comorbidity Qualified Code(s): E66.9 - Obesity, unspecified Is this a current diagnosis for this admission?: Yes - Plan Summary Summary: Patient will be admitted to the medical service where he will receive routine supportive and symptomatic cares. A consultation with Dr. Treadwell will be obtained for surgical evaluation and treatment. Patient will be treated with IV antibiotics utilizing meropenem and vancomycin empirically pending blood and culture results. He will use morphine sulfate 2 to 4 mg IV every 2 hours as needed for pain. He will use Ativan 1 mg IV every 4 hours as needed for anxiety or restlessness. He will receive a diabetic and cardiac restricted diet. S erial lactic acids will be obtained. A hemoglobin A1c, thyroid profile and lipid profile will be obtained. CBCs, metabolic profiles, magnesium levels and other laboratory and/or radiographic evaluations will be obtained as appropriate. Vancomycin levels will be obtained as appropriate per pharmacy who will manage the vancomycin dosing. Before meals and at bedtime Accu-Cheks will be obtained with sliding scale insulin for hyperglycemia and a hypoglycemic protocol in place. Registered dietitian consultation will be obtained for treatment of diabetes and weight reduction. - Time Time Spent with patient: 15-24 minutes Medications reviewed and adjusted accordingly: Yes Anticipated discharge: Home with Homehealth - Inpatient Certification Based on my medical assessment, after consideration of the patient's comorbidities, presenting symptoms, or acuity I expect that the services needed warrant INPATIENT care.: Yes I certify that my determination is in accordance with my understanding of Medicare's requirements for reasonable and necessary INPATIENT services [42 CFR 412.3e].: Yes Medical Necessity: Failure to Improve With Outpatient Therapy, Significant Comorbidiites Make Outpatient Treatment Too Risky, Need Close Monitoring Due to Risk of Patient Decompensation, Need For IV Fluids, Need for Pain Control, Need for IV Antibiotics, Need for Surgery, Risk of Complication if Not Cared For in Hospital
[2020-01-15] MEDS: ACETAMINOPHEN 325 MG TABLET PO PRN ×2 (02:41→13:25)
[2020-01-15] MEDS: PROMETHAZINE HCL INJ 25 MG/1 ML VIAL IV PRN (02:41)
[2020-01-15] MEDS: MEROPENEM 1 GM in NORMAL SALINE 50 ML IV SCH ×3 (06:24→22:36)
[2020-01-15 06:45] LABS: HEMATOCRIT 28.4 % (37.9-51.0); MEAN CORPUSCULAR HGB CONC 35.2 g/dL (32.0-36.0); MEAN CORPUSCULAR VOLUME 80 fl (80-97); PLATELET COUNT 333 10^3/uL (150-450); RED BLOOD COUNT 3.56 10^6/uL (4.35-5.55); RED CELL DISTRIBUTION WIDTH 13.6 % (11.5-14.0); WHITE BLOOD COUNT 6.4 10^3/uL (4.0-10.5)
[2020-01-15 07:04] LABS: ANION GAP 8 (5-19); BLOOD UREA NITROGEN 8 mg/dL (7-20); CALCIUM 8.7 mg/dL (8.4-10.2); CARBON DIOXIDE 22 mmol/L (22-30); CHLORIDE 105 mmol/L (98-107); CHOLESTEROL 114.53 mg/dL (0-200); GLUCOSE 243 mg/dL (75-110); POTASSIUM 4.3 mmol/L (3.6-5.0); TRIGLYCERIDES 95 mg/dL (<150)
[2020-01-15 07:14] LABS: DIRECT LDL 72 mg/dL (<100)
[2020-01-15 07:17] LABS: FREE T3 3.15 pg/mL (2.77-5.27)
[2020-01-15 07:32] LABS: THYROID STIMULATING HORMONE 1.54 uIU/mL (0.47-4.68)
[2020-01-15] MEDS: DOCUSATE SODIUM 100 MG CAPSULE PO SCH ×2 (10:06→17:59)
[2020-01-15] MEDS: RINGERS SOLUTION,LACTATED 1,000 ML IV PRN ×2 (11:55→16:56)
--- NOTE | 2020-01-15 12:13 | PDOC PROGRESS REPORT ---
Subjective Progress Note for:: 01/15/20 Subjective:: Still having foot pain. No more chills. Reason For Visit: OSTEOMYELITIS LEFT FOOT Physical Exam Vital Signs: Temp Pulse Resp BP Pulse Ox 98.3 F 89 18 121/71 98 01/15/20 07:53 01/15/20 07:53 01/15/20 07:53 01/15/20 07:53 01/15/20 07:53 Intake & Output 01/14/20 01/15/20 01/16/20 06:59 06:59 06:59 Intake Total 222 50 Output Total 0 Balance 222 50 Weight 97.4 kg General appearance: PRESENT: no acute distress, cooperative, well-developed Head exam: PRESENT: atraumatic Ear exam: PRESENT: normal external ear exam. ABSENT: bleeding, drainage Mouth exam: PRESENT: moist, tongue midline Respiratory exam: PRESENT: clear to auscultation kev, symmetrical, unlabored. ABSENT: rales, rhonchi, tachypnea, wheezes Cardiovascular exam: PRESENT: RRR, +S1, +S2, systolic murmur - 2/6. ABSENT: diastolic murmur, irregular rhythm GI/Abdominal exam: PRESENT: normal bowel sounds, soft. ABSENT: distended, guarding, tenderness Rectal exam: PRESENT: deferred Gentrourinary exam: ABSENT: indwelling catheter Extremities exam: PRESENT: other - left foot s/p amp 5th toe. Erythema and tende rness at the instep. Left fifth toe amputated Neurological exam: PRESENT: alert, awake, oriented to person, oriented to place, oriented to time, oriented to situation, CN II-XII grossly intact. ABSENT: altered Psychiatric exam: PRESENT: appropriate affect. ABSENT: agitated, anxious Focused psych exam: ABSENT: delusional, paranoid, restlessness Skin exam: PRESENT: dry, erythema - Medial aspect left foot, warm Results Laboratory Results: 01/15/20 05:56 01/15/20 05:56 01/14/20 01/14/20 01/14/20 17:35 17:35 17:35 WBC 6.4 RBC 3.67 L Hgb 10.4 L Hct 29.0 L MCV 79 L MCH 28.5 MCHC 36.0 RDW 13.5 Plt Count 365 Seg Neutrophils % 77.5 VBG pH 7.53 H VBG pCO2 29.2 L VBG HCO3 23.9 VBG Base Excess 2.8 Sodium 133.5 L Potassium 4.9 Chloride 102 Carbon Dioxide 22 Anion Gap 10 BUN 13 Creatinine 0.71 Est GFR ( Amer) > 60 Glucose 223 H Lactic Acid Calcium 9.3 Magnesium Total Bilirubin 0.9 AST 23 Alkaline Phosphatase 103 Total Protein 7.0 Albumin 3.4 L Triglycerides Cholesterol LDL Cholesterol Direct VLDL Cholesterol HDL Cholesterol TSH Free T3 pg/mL 01/14/20 01/14/20 01/15/20 17:35 21:13 00:41 WBC RBC Hgb Hct MCV MCH MCHC RDW Plt Count Seg Neutrophils % VBG pH VBG pCO2 VBG HCO3 VBG Base Excess Sodium Potassium Chloride Carbon Dioxide Anion Gap BUN Creatinine Est GFR ( Amer) Glucose Lactic Acid 1.4 0.8 1.0 Calcium Magnesium Total Bilirubin AST Alkaline Phosphatase Total Protein Albumin Triglycerides Cholesterol LDL Cholesterol Direct VLDL Cholesterol HDL Cholesterol TSH Free T3 pg/mL 01/15/20 01/15/20 01/15/20 05:56 05:56 05:56 WBC 6.4 RBC 3.56 L Hgb 10.0 L Hct 28.4 L MCV 80 MCH 28.0 MCHC 35.2 RDW 13.6 Plt Count 333 Seg Neutrophils % VBG pH VBG pCO2 VBG HCO3 VBG Base Excess Sodium 135.0 L Potassium 4.3 Chloride 105 Carbon Dioxide 22 Anion Gap 8 BUN 8 Creatinine 0.62 Est GFR ( Amer) > 60 Glucose 243 H Lactic Acid Calcium 8.7 Magnesium 1.6 Total Bilirubin AST Alkaline Phosphatase Total Protein Albumin Triglycerides 95 Cholesterol 114.53 LDL Cholesterol Direct 72 VLDL Cholesterol 19.0 HDL Cholesterol 22 L TSH 1.54 Free T3 pg/mL 3.15 Impressions: Chest X-Ray 01/14/20 17:50 IMPRESSION: NO ACUTE RADIOGRAPHIC FINDING IN THE CHEST. Foot X-Ray 01/14/20 19:22 IMPRESSION: Findings worrisome for continued osteomyelitis along the cuboid bone and base of the 5th metatarsal Assessment and Plan - Diagnosis (1) Osteomyelitis of left foot Qualifiers: Osteomyelitis type: unspecified type Qualified Code(s): M86.9 - Osteomyelitis, unspecified Is this a current diagnosis for this admission?: Yes Plan: 01/15/2020 Recent MRI shows multifocal infection. Marked changes in bone marrow edema. He is getting a bone biopsy tomorrow. He will have a PICC line placed. He will return to hyperbaric therapy and long-term IV antibiotics. Unfortunately I think the prognosis of this actually healing is quite poor and I firmly believe she will end up with a left below-knee amputation. (2) SIRS (systemic inflammatory response syndrome) Is this a current diagnosis for this admission?: Yes Plan: 01/15/2020 Secondary to likely osteomyelitis in the left foot. Improved with antibiotics (3) Hyperglycemia due to diabetes mellitus Is this a current diagnosis for this admission?: Yes Plan: 01/15/2020 3 made to convert some of his insulin to what is on her formulary. Will use sliding scale. He uses a combination of insulins that he did not carry. I will ask him if someone can bring his insulin with him and we can dose his insulin to avoid too many disruptions in treatment. (4) Hypertension Qualifiers: Hypertension type: essential hypertension Qualified Code(s): I10 - Essential (primary) hypertension Is this a current diagnosis for this admission?: Yes Plan: 01/15/2020 Continue current antihypertensives (5) Diabetic neuropathy Qualifiers: Diabetes mellitus type: type 2 Diabetes mellitus complication detail: diabetic polyneuropathy Qualified Code(s): E11.42 - Type 2 diabetes mellitus with diabetic polyneuropathy Is this a current diagnosis for this admission?: Yes Plan: 01/15/2020 Continue gabapentin - Plan Summary Summary: Patient will be admitted to the medical service where he will receive routine supportive and symptomatic cares. A consultation with Dr. Treadwell will be obtained for surgical evaluation and treatment. Patient will be treated with IV antibiotics utilizing meropenem and vancomycin empirically pending blood and culture results. He will use morphine sulfate 2 to 4 mg IV every 2 hours as needed for pain. He will use Ativan 1 mg IV every 4 hours as needed for anxiety or restlessness. He will receive a diabetic and cardiac restricted diet. Serial lactic acids will be obtained. A hemoglobin A1c, thyroid profile and lipid profile will be obtained. CBCs, metabolic profiles, magnesium levels and other laboratory and/or radiographic evaluations will be obtained as appropriate. Vancomycin levels will be obtained as appropriate per pharmacy who will manage the vancomycin dosing. Before meals and at bedtime Accu-Cheks will be obtained with sliding scale insulin for hyperglycemia and a hypoglycemic protocol in place. Registered dietitian consultation will be obtained for treatment of diabetes and weight reduction. - Time Time Spent with patient: 15-24 minutes Medications reviewed and adjusted accordingly: Yes Anticipated discharge: Home with Homehealth
[2020-01-15] MEDS: VANCOMYCIN HCL 1,500 MG in DEXTROSE 5%-WATER 250 ML IV SCH (14:00)
--- NOTE | 2020-01-15 20:57 | PDOC CONSULTATION ---
Consultation Consult Date: 01/15/20 Attending physician:: NESTOR BRITO Provider Consulted: SHAW ARAGON Consult reason:: Osteomyelitis left foot History of Present Illness Admission Date/PCP: 01/14/20 20:56 SHAW ARAGON DPM History of Present Illness: ANTONIETA EPPERSON is a 44 year old male who was admitted following a visit to the ED complaining of fever, chills, nausea and worsening foot pain. [facility] for a diabetic foot ulcer on the left foot. The ulceration has been progressing towards healing but recent MRI was positive for osteomyelitis of several bones in the midtarsus. ID consult was obtained, and he was started on daily hyperbaric oxygen therapy and scheduled for a bone biopsy. Past Medical History Cardiac Medical History: Reports: Hypertension Denies: Atrial Fibrillation, Coronary Artery Disease, DVT, Myocardial Infarction, Pulmonary Embolism Pulmonary Medical History: Reports: Respiratory Failure - Acute pulmonary edema associated with an inhaled anesthetic Denies: Asthma, Chronic Obstructive Pulmonary Disease (COPD), Sleep Apnea EENT Medical History: Reports: Eyes - Eyeglasses Denies: Cataracts, Ears - Hearing aids Neurological Medical History: Reports: Other - Diabetic peripheral neuropathy Denies: Hemorrhagic CVA, Ischemic CVA, Seizures Endocrine Medical History: Reports: Diabetes Mellitus Type 2, Obesity Denies: Diabetes Mellitus Type 1, Hyperthyroidism, Hypothyroidism Renal/ Medical History: Denies: Chronic Kidney Disease, Nephrolithiasis Malignancy Medical History: Reports: None GI Medical History: Denies: Cirrhosis, Hepatitis Musculoskeltal Medical History: Reports: Other - Osteomyelitis of the left fifth toe Denies: Arthritis, Gout Skin Medical History: Denies: Eczema, Psoriasis Psychiatric Medical History: Denies: Alcohol Dependency, Depression, Substance Abuse, Tobacco Dependency Traumatic Medical History: Reports: None Hematology: Denies: Anemia, Bleeding Tendencies Infectious Medical History: Reports: None Past Surgical History Past Surgical History: Reports: Appendectomy, Orthopedic Surgery - Left fifth toe and metatarsal partial resection for osteomyelitis in 2014. Social History Lives with: Family, Spouse/Significant other Smoking Status: Never Smoker Electronic Cigarette use?: No Frequency of Alcohol Use: None Hx Recreational Drug Use: No Drugs: None Hx Prescription Drug Abuse: No - Advance Directive Resuscitation Status: Full Code Family History Family History: DM - Mother's side,, Malignancy. denies: CAD, Hypertension Parental Family History Reviewed: Yes Children Family History Reviewed: Yes Sibling(s) Family History Reviewed.: Yes Medication/Allergy Home Medications: Gabapentin [Neurontin] 900 mg PO QHS 01/13/20 Insulin Aspart [Novolog] 60 unit SUBCUT HSP PRN 01/13/20 Insulin Glargine,Hum.rec.anlog [Toujeo Solostar] 0 units SUBCUT QPM 01/13/20 Metformin HCl 1,000 mg PO BID 01/13/20 Semaglutide [Ozempic] 1 mg INJ TH@1000 PRN 01/13/20 Simvastatin [Zocor 10 mg Tablet] 10 mg PO QHS 01/13/20 Insulin Aspart Prot/Insuln Asp [Novolog Mix 70-30 Flexpen Syrn] 40 unit SQ BIDBL 01/14/20 Lisinopril [Prinivil 5 mg Tablet] 5 mg PO DAILY 01/14/20 Allergies/Adverse Reactions: No Known Allergies Allergy (Verified 01/13/20 10:49) Physical Exam Vital Signs: Temp Pulse Resp BP Pulse Ox 99.6 F 100 20 131/75 H 98 01/15/20 12:00 01/15/20 12:00 01/15/20 12:00 01/15/20 12:00 01/15/20 12:00 Intake & Output 01/14/20 01/15/20 01/16/20 06:59 06:59 06:59 Intake Total 222 1548 Output Total 0 Balance 222 1548 Weight 214 lb 11.684 oz Pulses: PRESENT: +2 pedal pulses bilateral Vascular exam: PRESENT: normal capillary refill Extremities exam: PRESENT: full ROM, +1 edema. ABSENT: calf tenderness, clubbing Neurological exam: PRESENT: other - Diabetic neuropathy with loss of protective sensation. Skin exam: PRESENT: other - There is a chronic Jennings grade 3 diabetic ulcer on the lateral aspect of the left midfoot, overlying base of the fifth metatarsal bone. Wound measures 0.7 cm x 0.4 cm x 0.2 cm. No tunneling, no sinus tract, no undermining. Small amount of serosanguineous drainage. The base is a mixture of fibrous, granulation, and some necrotic tissue. There is no evidence epithelialization of the bed. Results Laboratory Results: 01/15/20 05:56 01/15/20 05:56 01/14/20 01/15/2020 21:13 00:41 05:56 WBC 6.4 RBC 3.56 L Hgb 10.0 L Hct 28.4 L MCV 80 MCH 28.0 MCHC 35.2 RDW 13.6 Plt Count 333 Sodium Potassium Chloride Carbon Dioxide Anion Gap BUN Creatinine Est GFR ( Amer) Glucose Lactic Acid 0.8 1.0 Calcium Magnesium Triglycerides Cholesterol LDL Cholesterol Direct VLDL Cholesterol HDL Cholesterol TSH Free T3 pg/mL 01/15/20 01/15/20 05:56 05:56 WBC RBC Hgb Hct MCV MCH MCHC RDW Plt Count Sodium 135.0 L Potassium 4.3 Chloride 105 Carbon Dioxide 22 Anion Gap 8 BUN 8 Creatinine 0.62 Est GFR ( Amer) > 60 Glucose 243 H Lactic Acid Calcium 8.7 Magnesium 1.6 Triglycerides 95 Cholesterol 114.53 LDL Cholesterol Direct 72 VLDL Cholesterol 19.0 HDL Cholesterol 22 L TSH 1.54 Free T3 pg/mL 3.15 Impressions: Chest X-Ray 01/14/20 17:50 IMPRESSION: NO ACUTE RADIOGRAPHIC FINDING IN THE CHEST. Foot X-Ray 01/14/20 19:22 IMPRESSION: Findings worrisome for continued osteomyelitis along the cuboid bone and base of the 5th metatarsal Assessment & Plan - Diagnosis (2) Osteomyelitis of left foot Qualifiers: Osteomyelitis type: unspecified type Qualified Code(s): M86.9 - Osteomyelitis, unspecified Is this a current diagnosis for this admission?: Yes (3) Type 2 diabetes mellitus Qualifiers: Diabetes mellitus fci insulin use: with fci use Diabetes mellitus complication status: with other specified complication Qualified Code(s): E11.69 - Type 2 diabetes mellitus with other specified complication; 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 Patient to continue intravenous antibiotics, will plan on discharge with PICC line follow ID recommendation. We will continue local wound care, to include application of collagen and a sterile dressing. Patient to resume hyperbaric oxygen therapy upon discharge from [facility] [place].
[2020-01-16] MEDS: PROMETHAZINE HCL INJ 25 MG/1 ML VIAL IV PRN ×2 (01:00→06:24)
[2020-01-16] MEDS: GABAPENTIN 300 MG CAPSULE PO SCH ×2 (01:00→21:49)
[2020-01-16] MEDS: ACETAMINOPHEN 325 MG TABLET PO PRN (01:05)
[2020-01-16] MEDS: VANCOMYCIN HCL 1,500 MG in DEXTROSE 5%-WATER 250 ML IV SCH ×3 (01:06→18:32)
[2020-01-16] MEDS: HEPARIN SOD (PORCINE) 5,000 UNIT/ML 1 ML VIAL SUBCUT SCH ×3 (05:34→21:57)
[2020-01-16] MEDS: MEROPENEM 1 GM in NORMAL SALINE 50 ML IV SCH ×3 (05:34→21:49)
[2020-01-16] MEDS: RINGERS SOLUTION,LACTATED 1,000 ML IV PRN (05:35)
[2020-01-16 06:46] LABS: HEMATOCRIT 28.3 % (37.9-51.0); MEAN CORPUSCULAR HGB CONC 35.1 g/dL (32.0-36.0); MEAN CORPUSCULAR VOLUME 80 fl (80-97); PLATELET COUNT 302 10^3/uL (150-450); RED BLOOD COUNT 3.56 10^6/uL (4.35-5.55); RED CELL DISTRIBUTION WIDTH 13.6 % (11.5-14.0); WHITE BLOOD COUNT 4.7 10^3/uL (4.0-10.5)
[2020-01-16] MEDS: INSULIN REG, HUMAN 100 UNIT/ML 3 ML VIAL (PYX) SUBCUT SCH ×4 (08:00→21:50)
[2020-01-16] MEDS ORDERED: [UNRECOGNIZED DRUG - OTHER] SQ SCH (08:00)
[2020-01-16] MEDS ORDERED: INSULN ASP SQ SCH (08:00)
[2020-01-16] MEDS ORDERED: INSULIN ASPART PROT SQ SCH (08:00)
[2020-01-16] MEDS: DOCUSATE SODIUM 100 MG CAPSULE PO SCH ×2 (10:23→18:32)
[2020-01-16] MEDS: METFORMIN HCL 500 MG TABLET PO SCH ×2 (10:23→18:30)
[2020-01-16] MEDS: FAMOTIDINE INJ/PF 20 MG/2 ML SDV IV SCH ×2 (11:14→21:49)
[2020-01-16] MEDS: LISINOPRIL 5 MG TABLET PO SCH (11:16)
--- NOTE | 2020-01-16 11:26 | RADIOLOGY REPORT (SQ) ---
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 FLUOROSCOPY TIME: FT: 11 seconds. 1 image saved to PACS. TECHNIQUE: Fluoroscopic and ultrasound guided PICC placement. LIMITATIONS: None. PROCEDURE: After written consent and assessment were obtained, the patient was brought into the fluo roscopy room and placed supine on the table. Ultrasound evaluation of potential access sites were per formed. After successfully identifying a patent left basilic vein, the left arm was prepped and drape d in a sterile fashion along with the ultrasound probe. The entry site was anesthetized with 1% lidoc jelena. A 21 gauge 7 cm needle was advanced through the skin and into the basilic vein under live ultra sound guidance. An ultrasound image was saved to PACS confirming access site. A .018 guide wire was then inserted through the needle and into the venous system. The needle was then removed and an 11 b lade scalpel was used to make a 1 cm skin incision. A 5 fr peel-away sheath was advanced over the wi re and into the venous system. A measurement was then made using the existing wire and live fluorosco pic guidance. The wire was then removed and trimmed. The PICC was advanced through the peel-away forman th and into the venous system. The peel-away sheath was removed and the catheter was adhered to the p atients arm with a stat lock. The catheter was then aspirated and flushed and a sterile bandage was p laced over the access site. A fluoroscopic spot image was saved to PACS confirming the catheter tip within the superior vena cava. IMPRESSION: SUCCESSFUL PLACEMENT OF A 5 FR DUAL LUMEN 42 CM PICC IN THE LEFT BASILIC VEIN. COMMENT: Patient medication list reviewed: Yes- Quality ID# [id number]:Eligible professional attests to doc umenting in the medical record they obtained, updated, or reviewed the patient's current medications. . Quality ID 145: Final reports for procedures using fluoroscopy that document radiation exposure anil elsie, or exposure time and number of fluorographic images (if radiation exposure indices are not avail able) Quality ID #76: The patient was prepped and draped using maximum sterile barrier technique including cap, mask, sterile gown, sterile gloves, a large sterile sheet, hand hygiene, and 2% Chlorhexidine fo r cutaneous antisepsis. When ultrasound is used, sterile ultrasound techniques are followed requiring sterile gel and sterile probes. TECHNICAL DOCUMENTATION: JOB ID: [id number] 2010 [employer]- All Rights Reserved rev Reading location - IP/workstation name: [email or web address]
[2020-01-16] MEDS ORDERED: NORMAL SALINE 10 ML SDV (AFTER EACH USE) IV PRN (11:30)
[2020-01-16] MEDS ORDERED: ONDANSETRON HCL INJ/PF 4 MG/2 ML SDV ONE (12:06)
[2020-01-16] MEDS ORDERED: FENTANYL CITRATE INJ/PF 100 MCG/2 ML AMPUL ONE ×2 (12:06→14:41)
[2020-01-16] MEDS ORDERED: MIDAZOLAM 2 MG/2 ML INJ ONE ×2 (12:06→14:41)
[2020-01-16] MEDS ORDERED: MORPHINE SULFATE 10 MG/ML INJ ONE (12:07)
[2020-01-16] MEDS ORDERED: PROPOFOL INJ 200 MG/20 ML VIAL IV ONE (12:07)
[2020-01-16] MEDS ORDERED: BUPIVACAINE HCL 0.25 % INJ/PF (2.5 MG/1 ML) 30 ML VIAL ONE (14:45)
[2020-01-16] MEDS ORDERED: LIDOCAINE 0.5% INJ-PF (5 MG/ML) 50 ML SDV ONE (14:45)
[2020-01-16] MEDS ORDERED: OXYCODONE-ACETAMINOPHEN 5-325 MG TABLET PO PRN ×2 (15:13)
[2020-01-16] MEDS ORDERED: DIPHENHYDRAMINE HCL 50 MG/ML VIAL IV PRN (15:13)
[2020-01-16] MEDS ORDERED: MEPERIDINE HCL/PF INJ 25 MG/1 ML DISP.SYRIN IV PRN (15:13)
[2020-01-16] MEDS ORDERED: PROMETHAZINE HCL INJ 25 MG/1 ML VIAL IV PRN ×2 (15:13)
[2020-01-16] MEDS ORDERED: FENTANYL CITRATE INJ/PF 100 MCG/2 ML AMPUL IV PRN ×3 (15:13)
[2020-01-16] MEDS ORDERED: ONDANSETRON HCL INJ/PF 4 MG/2 ML SDV IV PRN (15:13)
--- NOTE | 2020-01-16 16:11 | RADIOLOGY REPORT (SQ) ---
EXAM DESCRIPTION: FOOT LEFT 2 VIEWS; NO CHG FLUORO IMAGES COMPLETED DATE/TIME: 01/16/2020 3:54 pm REASON FOR STUDY: LEFT FOOT BIOPSIES ASSISTED WITH FLUORO IN OR COMPARISON: 01/14/2020 FLUOROSCOPY TIME: 17 seconds 7 images saved to PACS. TECHNIQUE: Intra-operative images acquired during surgical procedure to evaluate progress. NUMBER OF IMAGES: Twenty-six LIMITATIONS: None. FINDINGS: 7 fluoroscopic spot images were obtained in the operative suite. Images are submitted for administrative purposes only. Please refer to the operative report for full details regarding this procedure. IMPRESSION: IMAGE(S) OBTAINED DURING PROCEDURE. COMMENT: Quality ID 145: Final reports for procedures using fluoroscopy that document radiation exp osure indices, or exposure time and number of fluorographic images (if radiation exposure indices are not available) Please consult full operative report of the attending physician for description of the procedure. TECHNICAL DOCUMENTATION: JOB ID: [id number] 2010 [employer]- All Rights Reserved Reading location - IP/workstation name: [email or web address]
--- NOTE | 2020-01-16 16:11 | RADIOLOGY REPORT (SQ) ---
EXAM DESCRIPTION: FOOT LEFT 2 VIEWS; NO CHG FLUORO IMAGES COMPLETED DATE/TIME: 01/16/2020 3:54 pm REASON FOR STUDY: LEFT FOOT BIOPSIES ASSISTED WITH FLUORO IN OR COMPARISON: 01/14/2020 FLUOROSCOPY TIME: 17 seconds 7 images saved to PACS. TECHNIQUE: Intra-operative images acquired during surgical procedure to evaluate progress. NUMBER OF IMAGES: Twenty-six LIMITATIONS: None. FINDINGS: 7 fluoroscopic spot images were obtained in the operative suite. Images are submitted for administrative purposes only. Please refer to the operative report for full details regarding this procedure. IMPRESSION: IMAGE(S) OBTAINED DURING PROCEDURE. COMMENT: Quality ID 145: Final reports for procedures using fluoroscopy that document radiation exp osure indices, or exposure time and number of fluorographic images (if radiation exposure indices are not available) Please consult full operative report of the attending physician for description of the procedure. TECHNICAL DOCUMENTATION: JOB ID: [id number] 2010 [employer]- All Rights Reserved Reading location - IP/workstation name: [email or web address]
--- NOTE | 2020-01-16 16:13 | Operative Report ---
Operative Report DATE OF SURGERY: 01/16/20 PREOPERATIVE DIAGNOSIS: Osteomyelitis of the left foot. POSTOPERATIVE DIAGNOSIS: Same. OPERATION: Bone biopsy left foot. SURGEON: SHAW ARAGON ANESTHESIA: LMAC TISSUE REMOVED OR ALTERED: Bone specimens as specified above. COMPLICATIONS: None. ESTIMATED BLOOD LOSS: Less than 3 mL's. INTRAOPERATIVE FINDINGS: Intra-Op findings. PROCEDURE: Patient was taken the operating room following intravenous sedation and regional local anesthesia patient's left foot and leg were prepped and draped in the usual sterile manner. Attention was directed to the dorsal and lateral aspect of the patient's midfoot. Utilizing C arm, specimen sites were mapped and ma rked with marking pen. At that time utilizing a [employer] bone biopsy needle, bone specimens were obtained in the following order cuboid, lateral cuneiform, third metatarsal base, fourth metatarsal base, and 2 specimens were obtained from the base of the fifth fifth metatarsal. Specimens were split with a specimen from each site sent for microbiology and specimen from each site sent to pathology. Bleeding from the sites was minimal was controlled with pressure. Sterile dressing consisting of Adaptic, 4 x 4's, conform, and Coban was applied to the patient's left foot. Patient tolerated surgery and anesthesia well and was taken recovery room alert and feeling well.
--- NOTE | 2020-01-16 17:12 | PDOC PROGRESS REPORT ---
Subjective Progress Note for:: 01/16/20 Subjective:: I was able to see the patient in PACU. Dr. Treadwell was there and we discussed the case. Successful bone biopsy with specimen sent to pathology and microbiology. The patient already has his PICC line in place. Reason For Visit: OSTEOMYELITIS LEFT FOOT Physical Exam Vital Signs: Temp Pulse Resp BP Pulse Ox 98.0 F 81 16 146/88 H 98 01/16/20 17:03 01/16/20 17:03 01/16/20 16:30 01/16/20 17:03 01/16/20 17:03 Intake & Output 01/15/20 01/16/20 01/17/20 06:59 06:59 06:59 Intake Total 222 3298 1050 Output Total 0 Balance 222 3298 1050 Weight 97.4 kg 103.4 kg General appearance: PRESENT: no acute distress, cooperative, well-developed Head exam: PRESENT: atraumatic, normocephalic Eye exam: PRESENT: conjunctiva pink. ABSENT: scleral icterus Ear exam: PRESENT: normal external ear exam. ABSENT: bleeding, drainage Mouth exam: PRESENT: moist, tongue midline Respiratory exam: PRESENT: clear to auscultation kev, symmetrical, unlabored. ABSENT: rales, rhonchi, tachypnea, wheezes Cardiovascular exam: PRESENT: RRR, +S1, +S2 GI/Abdominal exam: PRESENT: normal bowel sounds, soft. ABSENT: distended, guarding, tenderness Rectal exam: PRESENT: deferred Gentrourinary exam: ABSENT: indwelling catheter Extremities exam: PRESENT: other - Bulky dressing on left foot Neurological exam: PRESENT: alert, awake, oriented to person, oriented to place, oriented to time, oriented to situation, CN II-XII grossly intact. ABSENT: altered Psychiatric exam: PRESENT: appropriate affect, normal mood. ABSENT: agitated, anxious Focused psych exam: ABSENT: delusional, paranoid, restlessness Results Laboratory Results: 01/16/20 06:25 01/15/20 05:56 01/16/20 06:25 WBC 4.7 RBC 3.56 L Hgb 10.0 L Hct 28.3 L MCV 80 MCH 28.0 MCHC 35.1 RDW 13.6 Plt Count 302 Impressions: Chest X-Ray 01/14/20 17:50 IMPRESSION: NO ACUTE RADIOGRAPHIC FINDING IN THE CHEST. Fluoroscopy 01/16/20 00:00 IMPRESSION: IMAGE(S) OBTAINED DURING PROCEDURE. Foot X-Ray 01/16/20 00:00 IMPRESSION: IMAGE(S) OBTAINED DURING PROCEDURE. PICC Line Insertion 01/16/20 00:00 IMPRESSION: SUCCESSFUL PLACEMENT OF A 5 FR DUAL LUMEN 42 CM PICC IN THE LEFT BASILIC VEIN. Assessment and Plan - Diagnosis (1) Osteomyelitis of left foot Qualifiers: Osteomyelitis type: unspecified type Qualified Code(s): M86.9 - Osteomyelitis, unspecified Is this a current diagnosis for this admission?: Yes Plan: Bone biopsies pending. The bone did not show classic destruction when Dr. Treadwell observed directly during surgery. The MRI as well as markedly elevated sed rate still suggest osteo-. Will likely discharge on IV antibiotics. (2) Hyperglycemia due to diabetes mellitus Is this a current diagnosis for this admission?: Yes Plan: Blood glucose still higher than desired. Specific dose of long-acting insulin not documented. Will discuss with patient and initiate therapy. (3) Hypertension Qualifiers: Hypertension type: essential hypertension Qualified Code(s): I10 - Essential (primary) hypertension Is this a current diagnosis for this admission?: Yes Plan: Blood pressure still variable. Consider adjustments in medication. His surgical procedure yesterday certainly would have thrown his numbers off temporarily. (4) Diabetic neuropathy Qualifiers: Diabetes mellitus type: type 2 Diabetes mellitus complication detail: diabetic polyneuropathy Qualified Code(s): E11.42 - Type 2 diabetes mellitus with diabetic polyneuropathy Is this a current diagnosis for this admission?: Yes Plan: Continue current treatment plan with gabapentin (5) SIRS (systemic inflammatory response syndrome) Is this a current diagnosis for this admission?: Yes Plan: Resolved - Plan Summary Summary: Patient will be admitted to the medical service where he will receive routine supportive and symptomatic cares. A consultation with Dr. Treadwell will be obtained for surgical evaluation and treatment. Patient will be treated with IV antibiotics utilizing meropenem and vancomycin empirically pending blood and culture results. He will use morphine sulfate 2 to 4 mg IV every 2 hours as needed for pain. He will use Ativan 1 mg IV every 4 hours as needed for anxiety or restlessness. He will receive a diabetic and cardiac restricted diet. Serial lactic acids will be obtained. A hemoglobin A1c, thyroid profile and lipid profile will be obtained. CBCs, metabolic profiles, magnesium levels and other laboratory and/or radiographic evaluations will be obtained as appropriate. Vancomycin levels will be obtained as appropriate per pharmacy who will manage the vancomycin dosing. Before meals and at bedtime Accu-Cheks will be obtained with sliding scale insulin for hyperglycemia and a hypoglycemic prot ocol in place. Registered dietitian consultation will be obtained for treatment of diabetes and weight reduction. - Time Time Spent with patient: 15-24 minutes Medications reviewed and adjusted accordingly: Yes Anticipated discharge: Home with Homehealth Within: within 48 hours
[2020-01-16] MEDS: SIMVASTATIN 10 MG TABLET PO SCH (21:49)
[2020-01-16] MEDS: NORMAL SALINE 10 ML SDV (SCHEDULED) IV SCH (21:51)
[2020-01-17] MEDS: VANCOMYCIN HCL 1,500 MG in DEXTROSE 5%-WATER 250 ML IV SCH ×3 (01:06→17:16)
[2020-01-17] MEDS: RINGERS SOLUTION,LACTATED 1,000 ML IV PRN (01:07)
[2020-01-17] MEDS: PROMETHAZINE HCL INJ 25 MG/1 ML VIAL IV PRN (01:10)
[2020-01-17] MEDS: HEPARIN SOD (PORCINE) 5,000 UNIT/ML 1 ML VIAL SUBCUT SCH ×3 (05:11→22:04)
[2020-01-17] MEDS: MEROPENEM 1 GM in NORMAL SALINE 50 ML IV SCH ×3 (05:12→21:57)
[2020-01-17 06:00] LABS: HEMATOCRIT 25.8 % (37.9-51.0); HEMOGLOBIN 8.8 g/dL (13.5-17.0); MEAN CORPUSCULAR HEMOGLOBIN 27.4 pg (27.0-33.4); MEAN CORPUSCULAR HGB CONC 34.1 g/dL (32.0-36.0); MEAN CORPUSCULAR VOLUME 80 fl (80-97); PLATELET COUNT 293 10^3/uL (150-450); RED BLOOD COUNT 3.21 10^6/uL (4.35-5.55); RED CELL DISTRIBUTION WIDTH 13.5 % (11.5-14.0); WHITE BLOOD COUNT 4.6 10^3/uL (4.0-10.5)
[2020-01-17] MEDS: INSULIN REG, HUMAN 100 UNIT/ML 3 ML VIAL (PYX) SUBCUT SCH ×4 (08:37→21:58)
[2020-01-17] MEDS: METFORMIN HCL 500 MG TABLET PO SCH ×2 (10:35→17:15)
[2020-01-17] MEDS: LISINOPRIL 5 MG TABLET PO SCH (10:35)
[2020-01-17] MEDS: FAMOTIDINE INJ/PF 20 MG/2 ML SDV IV SCH ×2 (10:36→21:58)
[2020-01-17] MEDS: DOCUSATE SODIUM 100 MG CAPSULE PO SCH ×2 (10:36→17:17)
[2020-01-17] MEDS: NORMAL SALINE 10 ML SDV (SCHEDULED) IV SCH ×2 (10:38→22:03)
--- NOTE | 2020-01-17 11:50 | PDOC PROGRESS REPORT ---
Subjective Progress Note for:: 01/17/20 Subjective:: Resting comfortably in bed. No complaints. Reason For Visit: OSTEOMYELITIS LEFT FOOT Physical Exam Vital Signs: Temp Pulse Resp BP Pulse Ox 98.3 F 81 19 134/70 H 95 01/17/20 07:54 01/17/20 07:54 01/17/20 07:54 01/17/20 07:54 01/17/20 07:54 Intake & Output 01/16/20 01/17/20 01/18/20 06:59 06:59 06:59 Intake Total 3298 2974 Balance 3298 2974 Weight 103.4 kg 105.5 kg General appearance: PRESENT: no acute distress, cooperative, well-developed Head exam: PRESENT: atraumatic, normocephalic Eye exam: PRESENT: conjunctiva pink, EOMI. ABSENT: scleral icterus Ear exam: PRESENT: normal external ear exam. ABSENT: bleeding, drainage Mouth exam: PRESENT: moist, tongue midline Respiratory exam: PRESENT: clear to auscultation kev, symmetrical, unlabored. ABSENT: accessory muscle use, prolonged expiratory phas, rales, rhonchi, tachypnea, wheezes Cardiovascular exam: PRESENT: RRR, +S1, +S2. ABSENT: diastolic murmur, irregular rhythm, systolic murmur GI/Abdominal exam: PRESENT: normal bowel sounds, soft. ABSENT: distended, guar ding, mass, tenderness Rectal exam: PRESENT: deferred Gentrourinary exam: ABSENT: indwelling catheter Extremities exam: ABSENT: pedal edema Musculoskeletal exam: PRESENT: ambulatory, other - History of left fifth toe amputation Neurological exam: PRESENT: alert, awake, oriented to person, oriented to place, oriented to time, oriented to situation, CN II-XII grossly intact. ABSENT: altered Psychiatric exam: PRESENT: appropriate affect, normal mood. ABSENT: agitated, anxious Focused psych exam: ABSENT: delusional, paranoid, restlessness Skin exam: PRESENT: dry, normal color, warm. ABSENT: rash Results Laboratory Results: 01/17/20 05:15 01/15/20 05:56 01/17/20 05:15 WBC 4.6 RBC 3.21 L Hgb 8.8 L Hct 25.8 L MCV 80 MCH 27.4 MCHC 34.1 RDW 13.5 Plt Count 293 Impressions: Chest X-Ray 01/14/20 17:50 IMPRESSION: NO ACUTE RADIOGRAPHIC FINDING IN THE CHEST. Fluoroscopy 01/16/20 00:00 IMPRESSION: IMAGE(S) OBTAINED DURING PROCEDURE. Foot X-Ray 01/16/20 00:00 IMPRESSION: IMAGE(S) OBTAINED DURING PROCEDURE. PICC Line Insertion 01/16/20 00:00 IMPRESSION: SUCCESSFUL PLACEMENT OF A 5 FR DUAL LUMEN 42 CM PICC IN THE LEFT BASILIC VEIN. Assessment and Plan - Diagnosis (1) Osteomyelitis of left foot Qualifiers: Osteomyelitis type: unspecified type Qualified Code(s): M86.9 - Osteomyelitis, unspecified Is this a current diagnosis for this admission?: Yes Plan: Bone biopsy submitted by Dr. Treadwell. They were obtained in the operating room yesterday. Blood cultures are negative. We will continue IV antibiotics at this time. (2) Hyperglycemia due to diabetes mellitus Is this a current diagnosis for this admission?: Yes Plan: I will add low-dose Lantus. Unfortunately we do not carry the medications that the patient is on at home. Continue Accu-Cheks and diabetic diet. (3) Hypertension Qualifiers: Hypertension type: essential hypertension Qualified Code(s): I10 - Essential (primary) hypertension Is this a current diagnosis for this admission?: Yes Plan: Variable but reasonable blood pressure control. Continue current regimen. (4) Diabetic neuropathy Qualifiers: Diabetes mellitus type: type 2 Diabetes mellitus complication detail: diabetic polyneuropathy Qualified Code(s): E11.42 - Type 2 diabetes mellitus with diabetic polyneuropathy Is this a current diagnosis for this admission?: Yes Plan: Continue gabapentin (5) SIRS (systemic inflammatory response syndrome) Is this a current diagnosis for this admission?: Yes Plan: Resolved - Plan Summary Summary: Patient will be admitted to the medical service where he will receive routine supportive and symptomatic cares. A consultation with Dr. Treadwell will be obtained for surgical evaluation and treatment. Patient will be treated with IV antibiotics utilizing meropenem and vancomycin empirically pending blood and culture results. He will use morphine sulfate 2 to 4 mg IV every 2 hours as needed for pain. He will use Ativan 1 mg IV every 4 hours as needed for anxiety or restlessness. He will receive a diabetic and cardiac restricted diet. Serial lactic acids will be obtained. A hemoglobin A1c, thyroid profile and lipid profile will be obtained. CBCs, metabolic profiles, magnesium levels and other laboratory and/or radiographic evaluations will be obtained as approp riate. Vancomycin levels will be obtained as appropriate per pharmacy who will manage the vancomycin dosing. Before meals and at bedtime Accu-Cheks will be obtained with sliding scale insulin for hyperglycemia and a hypoglycemic protocol in place. Registered dietitian consultation will be obtained for treatment of diabetes and weight reduction. - Time Time Spent with patient: 15-24 minutes Medications reviewed and adjusted accordingly: Yes Anticipated discharge: Home Within: within 48 hours
[2020-01-17] MEDS: GABAPENTIN 300 MG CAPSULE PO SCH (21:57)
[2020-01-17] MEDS: SIMVASTATIN 10 MG TABLET PO SCH (21:57)
[2020-01-17] MEDS ORDERED: INSULIN GLARGINE,HUM.REC.ANLOG 1,000 UNIT/10 ML VIAL SUBCUT SCH (22:00)
[2020-01-18 02:45] LABS: VANCOMYCIN,TROUGH 12.5 ug/mL (5.0-20.0)
[2020-01-18] MEDS: VANCOMYCIN HCL 1,500 MG in DEXTROSE 5%-WATER 250 ML IV SCH ×2 (03:05→10:13)
[2020-01-18] MEDS: MEROPENEM 1 GM in NORMAL SALINE 50 ML IV SCH ×2 (05:26→13:38)
[2020-01-18] MEDS: HEPARIN SOD (PORCINE) 5,000 UNIT/ML 1 ML VIAL SUBCUT SCH ×2 (05:28→13:39)
[2020-01-18] MEDS: INSULIN REG, HUMAN 100 UNIT/ML 3 ML VIAL (PYX) SUBCUT SCH ×2 (08:51→11:41)
[2020-01-18] MEDS: FAMOTIDINE INJ/PF 20 MG/2 ML SDV IV SCH (10:12)
[2020-01-18] MEDS: METFORMIN HCL 500 MG TABLET PO SCH (10:12)
[2020-01-18] MEDS: LISINOPRIL 5 MG TABLET PO SCH (10:12)
[2020-01-18] MEDS: NORMAL SALINE 10 ML SDV (SCHEDULED) IV SCH (10:13)
[2020-01-18] MEDS: DOCUSATE SODIUM 100 MG CAPSULE PO SCH (10:13)
[2020-01-18 12:14] VITALS: BP 142/84
--- NOTE | 2020-01-18 12:56 | PDOC DISCHARGE SUMMARY ---
Impression - Admit/DC Date/PCP Admission Date/Primary Care Provider: 01/14/20 20:56 SHAW TREADWELL DPM Discharge Date: 01/18/20 - Discharge Diagnosis (1) Osteomyelitis of left foot Is this a current diagnosis for this admission?: Yes (2) Hyperglycemia due to diabetes mellitus Is this a current diagnosis for this admission?: Yes (3) Hypertension Is this a current diagnosis for this admission?: Yes (4) Diabetic neuropathy Is this a current diagnosis for this admission?: Yes (5) SIRS (systemic inflammatory response syndrome) Is this a current diagnosis for this admission?: Yes - Assessment Summary: Patient will be admitted to the medical service where he will receive routine supportive and symptomatic cares. A consultation with Dr. Treadwell will be obtained for surgical evaluation and treatment. Patient will be treated with IV antibiotics utilizing meropenem and vancomycin empirically pending blood and culture results. He will use morphine sulfate 2 to 4 mg IV every 2 hours as needed for pain. He will use Ativan 1 mg IV every 4 hours as needed for anxiety or restlessness. He will receive a diabetic and cardiac restricted diet. Serial lactic acids will be obtained. A hemoglobin A1c, thyroid profile and lipid profile will be obtained. CBCs, metabolic profiles, magnesium levels and other laboratory and/or radiographic evaluations will be obtained as appropriate. Vancomycin levels will be obtained as appropriate per pharmacy who will manage the vancomycin dosing. Before meals and at bedtime Accu-Cheks will be obtained with sliding scale insulin for hyperglycemia and a hypoglycemic protocol in place. Registered dietitian consultation will be obtained for treatment of diabetes and weight reduction. - Additional Information Resuscitation Status: Full Code Discharge Diet: Diabetic Discharge Activity: Activity As Tolerated Referrals: SHAW TREADWELL DPM [Primary Care Provider] - Follow up as needed Prescriptions: Amoxicillin/Potassium Clav [Augmentin 875-125 Tablet] 1 tab PO NOW #14 tablet Home Medications: Gabapentin [Neurontin] 900 mg PO QHS 01/13/20 Insulin Aspart [Novolog] 60 unit SUBCUT HSP PRN 01/13/20 Insulin Glargine,Hum.rec.anlog [Toujeo Solostar] 0 units SUBCUT QPM 01/13/20 Metformin HCl 1,000 mg PO BID 01/13/20 Semaglutide [Ozempic] 1 mg INJ TH@1000 PRN 07/07/20 Simvastatin [Zocor 10 mg Tablet] 10 mg PO QHS 01/13/20 Insulin Aspart Prot/Insuln Asp [Novolog Mix 70-30 Flexpen] 40 unit SQ BIDBL 01/14/20 Lisinopril [Prinivil 5 mg Tablet] 5 mg PO DAILY 01/14/20 Amoxicillin/Potassium Clav [Augmentin 875-125 Tablet] 1 tab PO NOW #14 tablet 01/18/20 History of Present Illiness History of Present Illness: ANTONIETA EPPERSON is a 44 year old male who presented the emergency room via EMS with a 1 month history of left foot pain. He admits progressively worsening pain, redness and swelling of his left foot and ankle over the last 4 weeks since he was seen in the emergency room here at [facility] on 12/18/2019. He was treated for a cellulitis of the left foot with doxycycline x10 days. He had an MRI on 12/29/2019 showing possible osteomyelitis involving the third fourth and fifth metatarsals as well as several bones of the midfoot in addition to the soft tissue cellulitis and a possible septic arthritis. He has been seeing Dr. Treadwell at the wound care clinic and has undergone debridements and hyperbaric treatments without improvement. He was scheduled to have surgical bone scraping for collection of the infecting organism on 01/16/[address] Treadwell. He admits that his left foot pain, redness and swelling has worsened over the last 3 days and has been accompanied by a fever which became markedly worse today at greater than 102 with associated rigorous chills and accompanying nausea with vomiting this morning. His pain and fever have been partially relieved by taking Tylenol and Motrin over the last 2 days. His pain is worsened by weightbearing. He denies other associated or accompanying signs and symptoms. He admits prior similar symptoms that resulted in a partial amputation of the left fifth toe 5 years ago. He has not identified any additional aggravating or ameliorating factors for his left foot pain. In the emergency room he was found to have a fever of 102.8 F despite having taken Tylenol prior to coming to the ER. He was given IV fluids and blood cultures were obtained with empiric antibiotic therapy initiated. Patient was subsequently admitted to the hospital for further evaluation and treatment. Hospital Course Hospital Course: Unremarkable hospital course. The patient successfully underwent bone biopsy on Sunday. A PICC line was placed in anticipation of long-term IV antibiotics. Culture results were not available at the time of discharge.. Home health is going to maintain his PICC line. I prescribed 5 days of oral Augmentin so that he can follow-up with Dr. Treadwell at the wound care clinic. That will be left time for infectious diseases to make a decision with regard to which IV antibiotic and then the patient can also resume his hyperbaric oxygen therapy. We can then set up home infusion based on the recommendations of infectious diseases. The patient had a normal white blood cell count and was afebrile so I felt that this was a reasonable plan. The patient was in agreement. Physical Exam Vital Signs: Temp Pulse Resp BP Pulse Ox 98.1 F 83 16 142/84 H 100 01/18/20 12:13 01/18/20 12:13 01/18/20 12:13 01/18/20 12:13 01/18/20 12:13 Intake & Output 01/17/20 01/18/20 01/19/20 06:59 06:59 06:59 Intake Total 2974 2460 540 Balance 2974 2460 540 Weight 105.5 kg 105.2 kg General appearance: PRESENT: no acute distress Respiratory exam: PRESENT: clear to auscultation kev, symmetrical, unlabored. ABSENT: rales, rhonchi, tachypnea, wheezes Cardiovascular exam: PRESENT: RRR, +S1, +S2 GI/Abdominal exam: PRESENT: normal bowel sounds, soft. ABSENT: tenderness Results Laboratory Results: WBC 4.6 10^3/uL (4.0-10.5) 01/17/20 05:15 RBC 3.21 10^6/uL (4.35-5.55) L 01/17/20 05:15 Hgb 8.8 g/dL (13.5-17.0) L 01/17/20 05:15 Hct 25.8 % (37.9-51.0) L 01/17/20 05:15 MCV 80 fl (80-97) 01/17/20 05:15 MCH 27.4 pg (27.0-33.4) 01/17/20 05:15 MCHC 34.1 g/dL (32.0-36.0) 01/17/20 05:15 RDW 13.5 % (11.5-14.0) 01/17/20 05:15 Plt Count 293 10^3/uL (150-450) 01/17/20 05:15 Lymph % (Auto) 12.6 % (13-45) L 01/14/20 17:35 Moca % (Auto) 8.2 % (3-13) 01/14/20 17:35 Eos % (Auto) 1.0 % (0-6) 01/14/20 17:35 Baso % (Auto) 0.7 % (0-2) 01/14/20 17:35 Absolute Neuts (auto) 4.9 10^3/uL (1.7-8.2) 01/14/20 17:35 Absolute Lymphs (auto) 0.8 10^3/uL (0.5-4.7) 01/14/20 17:35 Absolute Monos (auto) 0.5 10^3/uL (0.1-1.4) 01/14/20 17:35 Absolute Eos (auto) 0.1 10^3/uL (0.0-0.6) 01/14/20 17:35 Absolute Basos (auto) 0.0 10^3/uL (0.0-0.2) 01/14/20 17:35 Seg Neutrophils % 77.5 % (42-78) 01/14/20 17:35 PT 14.0 SEC (11.4-15.4) 01/14/20 17:35 INR 1.08 01/14/20 17:35 VBG pH 7.53 (7.30-7.42) H 01/14/20 17:35 VBG pCO2 29.2 mmHg (35-63) L 01/14/20 17:35 VBG HCO3 23.9 mmol/L (20-32) 01/14/20 17:35 VBG Base Excess 2.8 mmol/L 01/14/20 17:35 Sodium 135.0 mmol/L (137-145) L 01/15/20 05:56 Potassium 4.3 mmol/L (3.6-5.0) 01/15/20 05:56 Chloride 105 mmol/L (98-107) 01/15/20 05:56 Carbon Dioxide 22 mmol/L (22-30) 01/15/20 05:56 Anion Gap 8 (5-19) 01/15/20 05:56 BUN 8 mg/dL (7-20) 01/15/20 05:56 Creatinine 0.62 mg/dL (0.52-1.25) 01/15/20 05:56 Est GFR ( Amer) > 60 (>60) 01/15/20 05:56 Est GFR (MDRD) Non-Af > 60 (>60) 01/15/20 05:56 Glucose 243 mg/dL (75-110) H 01/15/20 05:56 POC Glucose 255 mg/dL (70-110) H 01/18/20 11:11 Hemoglobin A1c % 7.0 % (4.7-6.0) H 01/15/20 05:56 Lactic Acid 1.0 mmol/L (0.7-2.1) 01/15/20 00:41 Calcium 8.7 mg/dL (8.4-10.2) 01/15/20 05:56 Magnesium 1.6 mg/dL (1.6-2.3) 01/15/20 05:56 Total Bilirubin 0.9 mg/dL (0.2-1.3) 01/14/20 17:35 Direct Bilirubin 0.1 mg/dL (0.0-0.4) 01/14/20 17:35 Neonat Total Bilirubin Not Reportable 01/14/20 17:35 Neonat Direct Bilirubin Not Reportable 01/14/20 17:35 Neonat Indirect Bili Not Reportable 01/14/20 17:35 AST 23 U/L (17-59) 01/14/20 17:35 ALT 17 U/L (<50) 01/14/20 17:35 Alkaline Phosphatase 103 U/L (38-126) 01/14/20 17:35 Total Protein 7.0 g/dL (6.3-8.2) 01/14/20 17:35 Albumin 3.4 g/dL (3.5-5.0) L 01/14/20 17:35 Triglycerides 95 mg/dL (<150) 01/15/20 05:56 Cholesterol 114.53 mg/dL (0-200) 01/15/20 05:56 LDL Cholesterol Direct 72 mg/dL (<100) 01/15/20 05:56 VLDL Cholesterol 19.0 mg/dL (10-31) 01/15/20 05:56 HDL Cholesterol 22 mg/dL (>40) L 01/15/20 05:56 TSH 1.54 uIU/mL (0.47-4.68) 01/15/20 05:56 Free T3 pg/mL 3.15 pg/mL (2.77-5.27) 01/15/20 05:56 Time Trough Drawn 0130 01/18/20 01:30 Vancomycin Trough 12.5 ug/mL (5.0-20.0) 01/18/20 01:30 Impressions: Chest X-Ray 01/14/20 17:50 IMPRESSION: NO ACUTE RADIOGRAPHIC FINDING IN THE CHEST. Foot X-Ray 01/14/20 19:22 IMPRESSION: Findings worrisome for continued osteomyelitis along the cuboid bone and base of the 5th metatarsal Fluoroscopy 01/16/20 00:00 IMPRESSION: IMAGE(S) OBTAINED DURING PROCEDURE. Foot X-Ray 01/16/20 00:00 IMPRESSION: IMAGE(S) OBTAINED DURING PROCEDURE. PICC Line Insertion 01/16/20 00:00 IMPRESSION: SUCCESSFUL PLACEMENT OF A 5 FR DUAL LUMEN 42 CM PICC IN THE LEFT BASILIC VEIN. Plan Health Concerns: Elevated sed rate and positive MRI for osteomyelitis changes in the bones of the foot. Unfortunately no positive culture results as yet. Patient was afebrile and had a normal white blood cell count. As noted above, PICC line is in place. I did send the patient home on a short course of oral antibiotics until he could see Dr. Treadwell in the wound care clinic on . I did not want to unnecessarily order medications just to be discarded if not used. The patient is stable enough to get by on 4 to 5 days of oral antibiotics until more definitive treatment can be instituted. Plan of Treatment: As above Goals: Definitive diagnosis with appropriate treatment plan for inflammatory changes in his foot Time Spent: Greater than 30 Minutes Stroke Is this a Stroke Patient?: No Acute Heart Failure - Is this a Heart Failure Patient?: No
== END 2020-01-18 15:45 | disposition home health service (06) | DRG 629 ==
LOC: ER 17:36 → EH 20:56 → 3S 22:25 → 4S 01-15 15:59
PROVIDERS: ADMIT Emergency Medicine; ATTEND Hospitalist
PROC: 0QBM3ZX Excision of Left Tarsal, Percutaneous Approach, Diagnostic (ICD-10-PCS; 2020-01-16)
PROC: 02HV33Z Insertion of Infusion Device into Superior Vena Cava, Percutaneous Approach (ICD-10-PCS; 2020-01-16)
PROC: B518ZZA Fluoroscopy of Superior Vena Cava, Guidance (ICD-10-PCS; 2020-01-16)
PROC: B548ZZA Ultrasonography of Superior Vena Cava, Guidance (ICD-10-PCS; 2020-01-16)
PROC: 0QBP3ZX Excision of Left Metatarsal, Percutaneous Approach, Diagnostic (ICD-10-PCS; principal; 2020-01-16 13:30)
DX: E11.621 Type 2 diabetes mellitus with foot ulcer (principal); M86.9 Osteomyelitis, unspecified; L97.429 Non-pressure chronic ulcer of left heel and midfoot with unspecified severity; E11.42 Type 2 diabetes mellitus with diabetic polyneuropathy; I86.8 Varicose veins of other specified sites; E11.69 Type 2 diabetes mellitus with other specified complication; I10 Essential (primary) hypertension; Z79.84 Long term (current) use of oral hypoglycemic drugs; Z79.4 Long term (current) use of insulin; Z79.891 Long term (current) use of opiate analgesic; Z79.899 Other long term (current) drug therapy; Z89.422 Acquired absence of other left toe(s)
CPT/HCPCS: 01480; 36415; 36573; 71045; 80048; 80053; 80061; 80202; 82803; 82962; 83036; 83605; 83735; 84443; 84481; 85025; 85027; 85610; 87040; 87070; 87101; 87205; 88305; 88311; 93005; 93010; 99285; J1335; J1642; J1644; J1815; J2185; J2250; J2270; J2405; J2550; J2704; J3010; J3370; J3490; J7060; J7120; S0028

== ENCOUNTER → 2020-02-02 | Outpatient (CLI) | payer BC ==
--- NOTE | 2020-02-02 15:38 | RADIOLOGY REPORT (SQ) ---
EXAM DESCRIPTION: NM 3 PHASE BONE SCAN IMAGES COMPLETED DATE/TIME: 02/02/2020 3:19 pm REASON FOR STUDY: L97.522 NON-PRS CHRONIC ULCER OTH PRT LEFT FOOT W FAT LAYER EXPOSED L97.522 NON-P RS CHRONIC ULCER OTH PRT LEFT FOOT W FAT LAYER COMPARISON: 01/14/2020 radiographs. Intraoperative radiographs from 01/16/2020, obtained during biopsy . RADIONUCLIDE AND DOSE: 21 millicuries Tc99m MDP. The route of agent administration: Intravenous. ADDITIONAL DRUGS AND DOSES: None. TECHNIQUE: Following injection of the radiopharmaceutical, serial blood flow images acquired. Equil ibrium blood pool images then acquired. Routine delayed images at 3 hour acquired of the areas of cl inical concern with additional focused images as needed. AREA OF INTEREST: Left foot LIMITATIONS: No technical limitations. FINDINGS: VASCULAR FLOW IMAGES: Increased activity throughout the visualized left distal leg and gala t. BLOOD POOL IMAGES: Increased blood pooling in the left foot. Mild increased blood pooling generally. BONES: Delayed imaging shows striking activity in the midfoot. This involves the base of the 5th met atarsal and adjacent cuboid, sites which appear to have been biopsied, possibly explaining some of th is. More extensive midfoot uptake is also noted. Unclear if this is also post biopsy or related to RSD. There also is patchy uptake in the distal leg bones, nonspecific. KIDNEYS: Symmetric excretion without obstruction. OTHER: No other significant finding. IMPRESSION: 1. Striking uptake in the left midfoot. Some of this may be post biopsy in etiology. There is posit ivity on all 3 phases, including cellulitis in the visualized left leg and foot. Osteomyelitis canno t be excluded in the areas of interest. Nonspecific uptake also noted in the leg. COMMENT: Quality measure 147: Current bone scan is compared with any available plain radiographs, p rior bone scans, and CT/MRI. TECHNICAL DOCUMENTATION: JOB ID: [id number] 2010 [employer]- All Rights Reserved Reading location - IP/workstation name: [email or web address]
== END ==
LOC: RAD 10:50
PROVIDERS: ATTEND Preventive Medicine Undersea and Hyperbaric Medicine
DX: L97.522 Non-pressure chronic ulcer of other part of left foot with fat layer exposed (principal)
CPT/HCPCS: 78315; A9503; Q9969

== ENCOUNTER → 2020-02-03 | Outpatient (CLI) | payer BC ==
--- NOTE | 2020-02-03 14:51 | RADIOLOGY REPORT (SQ) ---
EXAM DESCRIPTION: MRI LT LOWER EXTREMITY COMBO IMAGES COMPLETED DATE/TIME: 02/03/2020 1:31 pm REASON FOR STUDY: M89.9 DISORDER OF BONE, UNSPECIFIED M89.9 DISORDER OF BONE, UNSPECIFIED COMPARISON: X-ray 01/13/2020. TECHNIQUE: Multiplanar imaging of the left tibia-fibula to include T1-weighted, postcontrast T1-weig hted, and T2-weighted images. CONTRAST TYPE AND DOSE: 20 mL Prohance. RENAL FUNCTION: Not indicated. ACR Type II contrast agent associated with few, if any, unconfounded cases of NSF LIMITATIONS: None. FINDINGS: BONE MARROW: No significant marrow abnormality. Specifically no evidence of aggressive betty ne lesion in the tibial diaphysis. SOFT TISSUES: Heterogeneous fatty infiltration of the musculature likely related to disuse. No soft tissue mass. OTHER: No other significant finding. IMPRESSION: No evidence of aggressive bone lesion or osteomyelitis. TECHNICAL DOCUMENTATION: JOB ID: [id number] 2010 [email or web address]- All Rights Reserved Reading location - IP/workstation name: [email or web address]
== END ==
LOC: RAD 12:26
PROVIDERS: ATTEND Orthopaedic Surgery
DX: M89.9 Disorder of bone, unspecified (principal)
CPT/HCPCS: 73720; A9576

== ENCOUNTER → 2020-04-22 | Outpatient (CLI) | payer BC ==
--- NOTE | 2020-04-22 11:36 | RADIOLOGY REPORT (SQ) ---
EXAM DESCRIPTION: FOOT LEFT COMPLETE IMAGES COMPLETED DATE/TIME: 04/22/2020 8:56 am REASON FOR STUDY: NON PRESSURE CHRONIC ULCER OF OTHER PART OF LEFT WITH FAT LAYER EXPOSED L97.522 N ON-PRS CHRONIC ULCER OTH PRT LEFT FOOT W FAT LAYER E11.622 TYPE 2 DIABETES MELLITUS WITH OTHER SKIN ULCER COMPARISON: None. NUMBER OF VIEWS: Three views. TECHNIQUE: AP, lateral and oblique radiographic images acquired of the left foot. LIMITATIONS: None. FINDINGS: MINERALIZATION: Normal. BONES: Amputation of the 5th digit from the the mid 5th metatarsal level. There is heterogeneous min eralization of the remaining portion of the 5th metatarsal. JOINTS: Degenerative joint changes seen in some of the tarsal metatarsal joints. SOFT TISSUES: No soft tissue swelling. No foreign body. OTHER: No other significant finding. IMPRESSION: Cannot exclude osteomyelitis in the distal aspect of the remaining portion of the 5th me tatarsal. TECHNICAL DOCUMENTATION: JOB ID: [id number] 2010 [employer]- All Rights Reserved Reading location - IP/workstation name: [email or web address]
== END ==
LOC: RAD 08:36
PROVIDERS: ATTEND Preventive Medicine Undersea and Hyperbaric Medicine
DX: E11.622 Type 2 diabetes mellitus with other skin ulcer (principal); L97.522 Non-pressure chronic ulcer of other part of left foot with fat layer exposed

== ENCOUNTER → 2020-04-22 | Outpatient (CLI) | payer BC ==
[2020-04-22 13:02] LABS: ABSOLUTE BASOPHILS # (AUTO) 0.1 10^3/uL (0.0-0.2); ABSOLUTE EOSINOPHILS # (AUTO) 0.2 10^3/uL (0.0-0.6); ABSOLUTE MONOCYTES (AUTO) 0.4 10^3/uL (0.1-1.4); ABSOLUTE NEUT (AUTO) 4.3 10^3/uL (1.7-8.2); BASOPHILS % (AUTO) 1.2 % (0-2); HEMATOCRIT 37.5 % (37.9-51.0); HEMOGLOBIN 13.4 g/dL (13.5-17.0); LYMPHOCYTES % (AUTO) 28.5 % (13-45); MEAN CORPUSCULAR HEMOGLOBIN 29.6 pg (27.0-33.4); MEAN CORPUSCULAR HGB CONC 35.9 g/dL (32.0-36.0); MEAN CORPUSCULAR VOLUME 82 fl (80-97); MONOCYTES % (AUTO) 6.1 % (3-13); PLATELET COUNT 323 10^3/uL (150-450); RED BLOOD COUNT 4.55 10^6/uL (4.35-5.55); RED CELL DISTRIBUTION WIDTH 14.6 % (11.5-14.0); SEGMENTED NEUTROPHILS % (AUTO) 61.2 % (42-78); TOTAL CELLS COUNTED % (AUTO) 100 %
[2020-04-22 13:32] LABS: ALBUMIN 4.3 g/dL (3.5-5.0); ALKALINE PHOSPHATASE 67 U/L (38-126); ANION GAP 11 (5-19); ASPARTATE AMINO TRANSFERASE 38 U/L (17-59); BILIRUBIN,DIRECT 0.3 mg/dL (0.0-0.4); BILIRUBIN,TOTAL 0.7 mg/dL (0.2-1.3); BLOOD UREA NITROGEN 11 mg/dL (7-20); C-REACTIVE PROTEIN 11.2 mg/L (<10.0); CALCIUM 10.1 mg/dL (8.4-10.2); CARBON DIOXIDE 24 mmol/L (22-30); CHLORIDE 102 mmol/L (98-107); GLUCOSE 229 mg/dL (75-110); POTASSIUM 4.9 mmol/L (3.6-5.0); TOTAL PROTEIN 7.6 g/dL (6.3-8.2)
[2020-04-22 13:44] LABS: ERYTHROCYTE SEDIMENTATION RATE 67 mm/hr (0-15)
== END ==
LOC: OD 12:11
PROVIDERS: ATTEND Preventive Medicine Undersea and Hyperbaric Medicine
DX: E11.622 Type 2 diabetes mellitus with other skin ulcer (principal); L97.522 Non-pressure chronic ulcer of other part of left foot with fat layer exposed
CPT/HCPCS: 36415; 80053; 83036; 85025; 85652; 86140

== ENCOUNTER → 2020-08-05 | Outpatient (CLI) | payer BC ==
[2020-08-05 12:36] LABS: ABSOLUTE BASOPHILS # (AUTO) 0.1 10^3/uL (0.0-0.2); ABSOLUTE EOSINOPHILS # (AUTO) 0.2 10^3/uL (0.0-0.6); ABSOLUTE LYMPHOCYTES (AUTO) 2.1 10^3/uL (0.5-4.7); ABSOLUTE MONOCYTES (AUTO) 0.4 10^3/uL (0.1-1.4); ABSOLUTE NEUT (AUTO) 3.3 10^3/uL (1.7-8.2); BASOPHILS % (AUTO) 1.1 % (0-2); EOSINOPHILS % (AUTO) 3.2 % (0-6); HEMATOCRIT 38.8 % (37.9-51.0); HEMOGLOBIN 13.2 g/dL (13.5-17.0); LYMPHOCYTES % (AUTO) 34.7 % (13-45); MEAN CORPUSCULAR HEMOGLOBIN 28.3 pg (27.0-33.4); MEAN CORPUSCULAR HGB CONC 34.1 g/dL (32.0-36.0); MEAN CORPUSCULAR VOLUME 83 fl (80-97); PLATELET COUNT 306 10^3/uL (150-450); RED BLOOD COUNT 4.67 10^6/uL (4.35-5.55); RED CELL DISTRIBUTION WIDTH 13.4 % (11.5-14.0); TOTAL CELLS COUNTED % (AUTO) 100 %
--- NOTE | 2020-08-05 13:09 | RADIOLOGY REPORT (SQ) ---
EXAM DESCRIPTION: FOOT LEFT COMPLETE IMAGES COMPLETED DATE/TIME: 08/05/2020 12:24 pm REASON FOR STUDY: L97.522 NON-PRESSURE CHRONIC ULCER OF OTHER PART OF LEFT FOOT WITH FAT LAYE L97.52 2 NON-PRS CHRONIC ULCER OTH PRT LEFT FOOT W FAT LAYER E11.621 TYPE 2 DIABETES MELLITUS WITH FOOT U LCER COMPARISON: 12/29/2019 NUMBER OF VIEWS: Three views. TECHNIQUE: AP, lateral and oblique radiographic images acquired of the left foot. LIMITATIONS: None. FINDINGS: MINERALIZATION: Normal. BONES: No acute fracture or dislocation. There is amputation of the 5th ray from the mid 5th metatar gary level. There is some lucency in the distal aspect of the 5th metatarsal fragment. However, this appearance is improved compared to the study from 12/29/2019. JOINTS: No effusions. SOFT TISSUES: No soft tissue swelling. No foreign body. OTHER: No other significant finding. IMPRESSION: Improved appearance of the distal most remaining aspect of the 5th metatarsal. Cannot e xclude limited osteomyelitis. TECHNICAL DOCUMENTATION: JOB ID: [id number] 2010 [employer]- All Rights Reserved Reading location - IP/workstation name: [email or web address]
[2020-08-05 13:12] LABS: ALBUMIN 4.3 g/dL (3.5-5.0); ALKALINE PHOSPHATASE 51 U/L (38-126); ANION GAP 8 (5-19); ASPARTATE AMINO TRANSFERASE 51 U/L (17-59); BILIRUBIN,DIRECT 0.2 mg/dL (0.0-0.4); BILIRUBIN,TOTAL 0.6 mg/dL (0.2-1.3); BLOOD UREA NITROGEN 13 mg/dL (7-20); C-REACTIVE PROTEIN 9.1 mg/L (<10.0); CALCIUM 9.8 mg/dL (8.4-10.2); CARBON DIOXIDE 26 mmol/L (22-30); CHLORIDE 103 mmol/L (98-107); GLUCOSE 191 mg/dL (75-110); POTASSIUM 4.6 mmol/L (3.6-5.0); TOTAL PROTEIN 7.5 g/dL (6.3-8.2)
[2020-08-05 13:18] LABS: ERYTHROCYTE SEDIMENTATION RATE 41 mm/hr (0-15)
== END ==
LOC: RAD 11:52
PROVIDERS: ATTEND Nurse Practitioner Family
DX: E11.621 Type 2 diabetes mellitus with foot ulcer (principal); L97.522 Non-pressure chronic ulcer of other part of left foot with fat layer exposed
CPT/HCPCS: 36415; 80053; 83036; 85025; 85652; 86140